=== PATIENT | female | born 1975 | race Caucasian/White ===

== ENCOUNTER 2020-05-09 12:38 | Outpatient (REF) | payer OTHER, MEDICAID, SELFPAY ==
--- NOTE | ~2020-05-09 | MM_ITS ---
EXAMINATION: MM SCREENING DIGITAL BREAST TOMOSYNTHESIS, BILATERAL CLINICAL INFORMATION: Screening. Asymptomatic. The lifetime risk of breast cancer based on the Tyrer-Cuzick Model is 11%. COMPARISON: Mammography: 02/10/2018, 03/04/2015, 02/12/2015 TECHNIQUE: Digital breast tomosynthesis is performed in both the craniocaudal and mediolateral oblique views along with computer-aided detection (CAD). Synthesized 2D images are generated from the tomosynthesis. Additional bilateral CC views are provided. FINDINGS: There are scattered areas of fibroglandular density (ACR BI-RADS breast composition Category b). There are no significant masses, abnormal calcifications, or other abnormalities. Parenchymal pattern is similar to prior studies. Skin contours are smooth. MM/MM tomosynthesis screening BI IMPRESSION: No mammographic evidence of malignancy. ASSESSMENT: BI-RADS 1: Negative RECOMMENDATION: Routine annual mammography screening. This patient's information was entered into a reminder system with a target due date for their next mammogram.
== END 2020-05-09 12:39 | disposition home or self-care (01) ==
LOC: HO.MAMMO 12:38
PROVIDERS: PCP Family Medicine; Visit Provider Family Medicine
DX: Z12.31 Encounter for screening mammogram for malignant neoplasm of breast (principal)
CPT/HCPCS: 77063; 77067

== ENCOUNTER 2020-06-17 12:23 | Outpatient (REF) | payer OTHER, MEDICAID, SELFPAY ==
[2020-06-17 15:11] LABS: MANUAL DIFF FLAG NO
[2020-06-17 15:26] LABS: Basophils Absolute Auto 0.1 X10*3/uL (0.0-0.2); Basophils Percent Auto 1.1 % (0-2); Eosinophils Absolute Auto 0.2 X10*3/uL (0.0-0.4); Eosinophils Percent Auto 2.4 % (0-4); Hematocrit 41.2 % (37-47); Hemoglobin 12.8 g/dl (12.0-16.0); Imm Gran Abs Auto 0.03 X10*3/uL (0.00-0.03); Imm Gran Pct Auto 0.3 % (0.0-0.4); Lymphocytes Absolute Auto 3.4 X10*3/uL (1.2-4.9); Lymphocytes Percent Auto 37.9 % (20-40); Mean Corpuscular HGB Conc 31.1 g/dl (31.0-35.0); Mean Corpuscular Hemoglobin 26.9 pg (27.0-33.0); Mean Corpuscular Volume 86.7 fL (80-98); Mean Platelet Volume 9.5 fL (9.4-12.3); Monocytes Absolute Auto 0.8 X10*3/uL (0.1-1.2); Monocytes Percent Auto 8.7 % (2-11); Neutrophils Absolute Auto 4.5 X10*3/uL (2.0-8.3); Neutrophils Percent Auto 49.6 % (45-73); Platelet Count 365 X10*3/uL (160-400); Red Blood Count 4.75 X10*6/uL (4.20-5.50); Red Cell Distribution Width 15.2 % (11.0-16.0)
[2020-06-17 15:36] LABS: Alanine Aminotransferase 9 U/L (0-31); Albumin Level 4.1 g/dL (3.5-5.0); Alkaline Phosphatase 95 U/L (39-117); Anion Gap 15 (12-20); Aspartate Amino Transferase 15 U/L (5-31); Bilirubin Total 0.4 mg/dL (0.0-1.0); Blood Urea Nitrogen 6 mg/dL (9-16); Calcium 8.8 mg/dL (8.4-10.2); Carbon Dioxide 26 mmol/L (22-29); Chloride 103 mmol/L (96-108); Estimated Glomerular Filt Rate > 60; Glucose Random 96 mg/dL (60-115); Potassium 4.5 mmol/L (3.3-5.1); Sodium 139 mmol/L (135-145); Total Protein 7.8 g/dL (6.5-8.0)
[2020-06-17 16:05] LABS: Thyroid Stimulating Hormone 1.65 uIU/mL (0.32-4.0)
== END 2020-06-17 12:24 | disposition home or self-care (01) ==
LOC: HO.LAB 12:23
PROVIDERS: PCP Family Medicine; Visit Provider Physician Assistant
DX: K21.9 Gastro-esophageal reflux disease without esophagitis (principal); K59.09 Other constipation; R10.11 Right upper quadrant pain; R74.01 Elevation of levels of liver transaminase levels; Z79.899 Other long term (current) drug therapy
CPT/HCPCS: 36415; 80053; 84443; 85025

== ENCOUNTER 2020-06-26 15:01 | Outpatient (REF) | payer OTHER, MEDICAID, SELFPAY ==
[2020-06-26 15:20] LABS: MANUAL DIFF FLAG NO
[2020-06-26 15:23] LABS: Basophils Absolute Auto 0.1 X10*3/uL (0.0-0.2); Basophils Percent Auto 0.6 % (0-2); Eosinophils Absolute Auto 0.2 X10*3/uL (0.0-0.4); Eosinophils Percent Auto 1.9 % (0-4); Hematocrit 40.2 % (37-47); Hemoglobin 12.5 g/dl (12.0-16.0); Imm Gran Abs Auto 0.04 X10*3/uL (0.00-0.03); Imm Gran Pct Auto 0.3 % (0.0-0.4); Lymphocytes Absolute Auto 4.3 X10*3/uL (1.2-4.9); Lymphocytes Percent Auto 34.9 % (20-40); Mean Corpuscular HGB Conc 31.1 g/dl (31.0-35.0); Mean Corpuscular Hemoglobin 26.9 pg (27.0-33.0); Mean Corpuscular Volume 86.6 fL (80-98); Mean Platelet Volume 8.8 fL (9.4-12.3); Monocytes Absolute Auto 0.8 X10*3/uL (0.1-1.2); Monocytes Percent Auto 6.6 % (2-11); Neutrophils Absolute Auto 6.8 X10*3/uL (2.0-8.3); Neutrophils Percent Auto 55.7 % (45-73); Platelet Count 353 X10*3/uL (160-400); Red Blood Count 4.64 X10*6/uL (4.20-5.50); Red Cell Distribution Width 15.1 % (11.0-16.0); White Blood Count 12.2 X10*3/uL (4.8-10.8)
[2020-06-26 15:46] LABS: Alanine Aminotransferase 15 U/L (0-31); Albumin Level 4.1 g/dL (3.5-5.0); Alkaline Phosphatase 91 U/L (39-117); Anion Gap 11 (12-20); Aspartate Amino Transferase 17 U/L (5-31); Bilirubin Total 0.2 mg/dL (0.0-1.0); Blood Urea Nitrogen 8 mg/dL (9-16); Calcium 8.4 mg/dL (8.4-10.2); Carbon Dioxide 27 mmol/L (22-29); Chloride 102 mmol/L (96-108); Estimated Glomerular Filt Rate > 60; Glucose Random 82 mg/dL (60-115); Iron 39 mcg/dL (30-160); Percent Iron Saturation 9 % (15-50); Potassium 3.6 mmol/L (3.3-5.1); Sodium 136 mmol/L (135-145); Total Iron Binding Capacity 428 mcg/dL (228-428); Total Protein 7.8 g/dL (6.5-8.0); Unsaturated Iron Binding 389 ug/dL
[2020-06-26 16:10] LABS: Thyroid Stimulating Hormone 0.98 uIU/mL (0.32-4.0)
[2020-06-26 16:12] LABS: Vitamin B12 480 pg/mL (200-900)
[2020-06-26 16:40] LABS: Ferritin 12 ng/mL (10-250)
== END 2020-06-26 15:02 | disposition home or self-care (01) ==
LOC: HO.LAB 15:01
PROVIDERS: PCP Family Medicine; Visit Provider Family Medicine
DX: N93.9 Abnormal uterine and vaginal bleeding, unspecified (principal)
CPT/HCPCS: 36415; 80053; 82607; 82728; 83540; 84443; 85025

== ENCOUNTER 2020-07-02 09:09 | Outpatient (REF) | payer OTHER, MEDICAID, SELFPAY ==
[2020-07-02 14:49] LABS: CT PCR NOT DETECTED (Not Detect.); NG PCR NOT DETECTED (Not Detect.)
[2020-07-05 01:07] LABS: HPV mRNA E6/E7 rflx Not Detected (Not Detected)
== END 2020-07-02 09:10 | disposition home or self-care (01) ==
LOC: HO.LAB 09:09
PROVIDERS: PCP Family Medicine; Visit Provider Obstetrics & Gynecology
DX: Z12.4 Encounter for screening for malignant neoplasm of cervix (principal); Z11.51 Encounter for screening for human papillomavirus (HPV); Z11.3 Encounter for screening for infections with a predominantly sexual mode of transmission; N92.1 Excessive and frequent menstruation with irregular cycle
CPT/HCPCS: 87491; 87591; 87624; 88142

== ENCOUNTER 2020-07-02 10:41 | Outpatient (REF) | payer OTHER, MEDICAID, SELFPAY | END 2020-07-02 10:42 | disposition home or self-care (01) | LOC: HO.LNP 10:41 | PROVIDERS: Visit Provider Physician Assistant | DX: A04.8 Other specified bacterial intestinal infections (principal); R10.9 Unspecified abdominal pain | CPT/HCPCS: 87338 ==

== ENCOUNTER 2020-07-03 07:56 | Outpatient (REF) | payer OTHER, MEDICAID, SELFPAY ==
--- NOTE | ~2020-07-03 | US_ITS ---
EXAMINATION: US COMPLETE ABDOMEN WITH LIVER ELASTOGRAPHY CLINICAL INFORMATION: Abdominal pain. COMPARISON: CT 06/09/2014. TECHNIQUE: Real-time imaging of the abdominal viscera. Noninvasive ultrasound liver fibrosis assessment is performed using Haleigh ElastPQ point quantification shear wave elastography (pSWE) with a C5-2 MHz transducer. Multiple elastography samples are obtained. FINDINGS: PANCREAS: Normal. The visualized pancreatic head and body are normal in appearance. The remainder of the pancreas is obscured from visualization by the overlying bowel gas. ABDOMINAL AORTA: The proximal, middle, and distal aortic segments are normal in caliber. INFERIOR VENA CAVA: Visualized portions are normal. LIVER: The liver demonstrates normal size, contour and echogenicity. No focal lesion or intrahepatic biliary duct dilatation. The right lobe measures 15.2 cm in length. The left lobe measures 11.6 cm in length. Portal flow is hepatopedal. Shear wave liver elastography median stiffness is 1.33 m/s (reference: normal median stiffness is 1.3 m/s or less). IQR/median stiffness to assess sampling precision is 0.13 (reference: good quality data set is IQR/median stiffness of 0.15 or less). GALLBLADDER: Echogenic focus associated with the wall, with ringdown artifact, suggesting adenomyomatosis. No shadowing calculi. No wall thickening or pericholecystic fluid. No sonographic Pimentel's sign. COMMON BILE DUCT: Normal in caliber measuring 0.3 cm in diameter. RIGHT KIDNEY: Normal. No hydronephrosis. No renal calculi or focal parenchymal lesions. The kidney measures 11.1 cm in maximum dimension. LEFT KIDNEY: Normal. No hydronephrosis. No renal calculi or focal parenchymal lesions. The kidney measures 11.2 cm in maximum dimension. SPLEEN: Normal. The spleen measures 8.7 cm in maximum dimension. FREE FLUID: None. US/US abdomen comp w elastography IMPRESSION: 1. Echogenic focus associated with the gallbladder wall suggesting adenomyomatosis. 2. Liver echogenicity is within normal limits. Liver elastography: Median stiffness is 1.33 m/s. In the absence of other known clinical signs, rules out compensated advanced chronic liver disease. See guidelines below. REFERENCE: Society of Radiologists in Ultrasound Liver Stiffness Thresholds (2020): LIVER STIFFNESS THRESHOLDS: *Liver Stiffness equal or less than 1.3 m/s: High probability of being normal. *Liver Stiffness less than 1.7 m/s: In the absence of other known clinical signs, rules out compensated advanced chronic liver disease. *Liver Stiffness 1.7-2.1 m/s: Suggestive of compensated advanced chronic liver disease but need further test for confirmation. *Liver Stiffness over 2.1 m/s: Rules in compensated advanced chronic liver disease. *Liver Stiffness over 2.4 m/s: Suggestive of clinically significant portal hypertension. QUALITY OF DATA SET: *IQR/Median value equal or less than 0.15 implies a quality data set. *IQR/Median value over 0.15 implies a poor quality data set. SIGNIFICANT CHANGE FROM PRIOR EXAM: Significant change if liver stiffness measurement is 10% or greater from prior exam. OTHER CONSIDERATIONS: The stage of liver fibrosis may be overestimated in the setting of acute hepatitis, liver inflammation, elevated liver function tests, hepatic vascular congestion, obstructive cholestasis, non-fasting state, and infiltrative diseases such as amyloidosis and lymphoma. In some patients with NAFLD, the liver stiffness thresholds for compensated advanced chronic liver disease may be lower. In causes other than viral hepatitis and NAFLD, liver stiffness thresholds are not well established.
[2020-07-03 10:40] LABS: HCG Quantitative < 2 mIU/mL; Thyroid Stimulating Hormone 1.11 uIU/mL (0.32-4.0)
[2020-07-04 05:01] LABS: Follicle Stimulating Hormone 7.4 mIU/mL
== END 2020-07-03 07:57 | disposition home or self-care (01) ==
LOC: HO.US 07:56
PROVIDERS: Absent Provider Obstetrics & Gynecology; PCP Family Medicine; Visit Provider Nurse Practitioner
DX: R10.9 Unspecified abdominal pain (principal); N92.1 Excessive and frequent menstruation with irregular cycle
CPT/HCPCS: 36415; 76705; 76981; 83001; 83002; 84443; 84702

== ENCOUNTER 2020-07-08 13:00 | Outpatient (REF) | payer OTHER, MEDICAID, SELFPAY ==
--- NOTE | ~2020-07-08 | US_ITS ---
EXAMINATION: ULTRASOUND PELVIS. CLINICAL INFORMATION: Excessive and frequent menstruation with irregularity. COMPARISON: None TECHNIQUE: Transabdominal and transvaginal ultrasound pelvis is performed. FINDINGS: The uterus is anteverted measuring 11.0 cm in length, 4.8 cm in AP and 5.8 cm in transverse dimension. Endometrial thickness is 0.4 cm. The right ovary measures 3.2 x 1.7 x 1.6 cm and volume 4.6 mL. Previously it measured 1.6 x 2.9 x 2.0 cm. The left ovary measures 4.0 x 2.0 x 1.8 cm and volume 7.5 mL. Previously measured 1.6 x 3.0 x 2.0 cm. There are multiple cervical nabothian cysts seen. There is no free fluid in the cul-de-sac. US/US pelvic complete IMPRESSION: Anteverted uterus is unremarkable. Unremarkable ovaries. Multiple nabothian cyst visualized in cervix.
--- NOTE | ~2020-07-08 | US_ITS ---
EXAMINATION: ULTRASOUND PELVIS. CLINICAL INFORMATION: Excessive and frequent menstruation with irregularity. COMPARISON: None TECHNIQUE: Transabdominal and transvaginal ultrasound pelvis is performed. FINDINGS: The uterus is anteverted measuring 11.0 cm in length, 4.8 cm in AP and 5.8 cm in transverse dimension. Endometrial thickness is 0.4 cm. The right ovary measures 3.2 x 1.7 x 1.6 cm and volume 4.6 mL. Previously it measured 1.6 x 2.9 x 2.0 cm. The left ovary measures 4.0 x 2.0 x 1.8 cm and volume 7.5 mL. Previously measured 1.6 x 3.0 x 2.0 cm. There are multiple cervical nabothian cysts seen. There is no free fluid in the cul-de-sac. US/US transvaginal IMPRESSION: Anteverted uterus is unremarkable. Unremarkable ovaries. Multiple nabothian cyst visualized in cervix.
== END 2020-07-08 13:01 | disposition home or self-care (01) ==
LOC: HO.US 13:00
PROVIDERS: PCP Family Medicine; Visit Provider Obstetrics & Gynecology
DX: N92.1 Excessive and frequent menstruation with irregular cycle (principal)
CPT/HCPCS: 76830; 76856

== ENCOUNTER 2020-07-17 08:32 | Outpatient (REF) | payer OTHER, MEDICAID, SELFPAY | END 2020-07-17 08:33 | disposition home or self-care (01) | LOC: HO.LAB 08:32 | PROVIDERS: PCP Family Medicine; Visit Provider Obstetrics & Gynecology | DX: N92.1 Excessive and frequent menstruation with irregular cycle (principal) | CPT/HCPCS: 58100; 81025; 88305 ==

== ENCOUNTER → 2020-07-31 12:06 | Outpatient (BNVA) | payer OTHER, MEDICAID, SELFPAY | PROVIDERS: PCP Family Medicine; Visit Provider Obstetrics & Gynecology ==

== ENCOUNTER 2020-10-10 14:54 | Outpatient (REF) | payer OTHER, MEDICAID, SELFPAY ==
--- NOTE | ~2020-10-10 | XR_ITS ---
EXAMINATION: XR FOOT, LEFT CLINICAL INFORMATION: Pain in left foot. COMPARISON: None TECHNIQUE: AP, lateral, and oblique views of the left foot. 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 Minimal spurring is seen in the posterior calcaneus at the insertion of the Achilles tendon and plantar fascia. No fracture, malalignment or other acute abnormality. Joint spaces are maintained. No erosions. XR/XR foot LT min 3V IMPRESSION: Accessory navicular bone. Minimal calcaneal spurring. No acute abnormality.
== END 2020-10-10 14:55 | disposition home or self-care (01) ==
LOC: HO.XRAY 14:54
PROVIDERS: PCP Family Medicine; Referring Provider Family Medicine; Visit Provider Internal Medicine
DX: M79.672 Pain in left foot (principal)
CPT/HCPCS: 73630

== ENCOUNTER → 2020-10-30 11:15 | Outpatient (BNVA) | payer OTHER, MEDICAID, SELFPAY | PROVIDERS: PCP Family Medicine; Visit Provider Obstetrics & Gynecology ==

== ENCOUNTER → 2021-02-04 13:52 | Outpatient (REF) | payer OTHER, MEDICAID, SELFPAY ==
--- NOTE | 2021-02-04 13:57 | CA_ITS ---
Transthoracic Echocardiogram Patient (Last, First, Middle): Tameka Ramos, Gender: Female Date of : 1975 Age: 45 Procedure Date: 02/04/2021 Procedure Type: Transthoracic Echocardiogram Location: OP Height: 152.4 cm Weight: 102.06 kg BSA: 1.96 m2 Heart Rate: bpm BP: 120 / 68 mmHg Hasher Operator: LUDWIG Referring MD: Sofia Garcia MD Symptoms: LOCIALIZED EDEMA Study Quality: Fair ECG Rhythm: Sinus Conclusions: - The left ventricular systolic function is normal. The visually estimated ejection fraction is between 65-70%. - No obvious valvular pathology seen on this study. Findings Left Ventricle Normal left ventricular cavity size. There is normal left ventricular wall thickness. The left ventricular systolic function is normal. The visually estimated ejection fraction is between 65-70%. There is no evidence of regional wall motion abnormalities. Diastolic function is normal for age. Right Ventricle Normal right ventricular cavity size and systolic function. Atria Both atria are normal in size. Aortic Valve There is a normal trileaflet aortic valve. There is no aortic valve stenosis. There is no aortic valve regurgitation. Mitral Valve The mitral valve appears normal. There is trace mitral valve regurgitation. There is no mitral valve stenosis. Pulmonic Valve The pulmonic valve was not well visualized. Tricuspid Valve There is trace tricuspid valve regurgitation. The pulmonary artery systolic pressure is normal. Great Vessels The aortic annulus, sinuses of valsalva, and asc aorta are normal in size. Venous The inferior vena cava is normal in size and collapses greater than 50% with inspiration. Pericardium/Pleural There is no evidence of pericardial effusion. Prior Study Comparison No prior study available for comparison. Recommendations, Care & Conclusions No obvious valvular pathology seen on this study. Measurements 2D Linear Measurements IVSd: 0.97 0.6-0.9/0.6-1.0 cm LVIDd: 4.38 3.9-5.3/4.2-5.9 cm LVIDd Index: 2.23 2.4-3.2/2.2-3.1 cm/m2 LVIDs: 3.03 2.0-3.6 cm LVPWd: 1.06 0.7-1.1 cm Ao Root: 2.30 2.1-3.5 cm LA Diam: 3.20 2.7-3.8/3.0-4.0 cm LAIDs Index: 1.63 1.5-2.3 cm/m2 LV Mass: 187.03 67-162/88-224 g LV Mass Index: 95.43 43-95/49-115 g/m2 LVOT Diam: 1.90 3.0+(-)1.3 cm Mitral Valve MV Pk E: 1.07 MV PK A: 0.47 MV Decel Time: 195.00 E/A: 2.30 E'Lateral: 12.50 E'Medial: 11.20 E/E' Med: 9.60 E/E' Lat: 8.60 PHT: 57.00 MVA PHT: 3.86 Decel Frontier: 5.47 Aortic Valve AoV Pk Gerber: 1.49 AoV Pk Grad: 9.00 LVOT LVOT Pk Gerber: 1.18 LVOT Mn Gerber: 0.72 LVOT VTI: 0.25 LVOT Pk Grad: 6.00 LVOT Mn Grad: 2.00 LVOT Diam: 1.90 LVOT Area: 2.84 Diastolic Function MV Pk E: 1.07 MV Pk A: 0.47 E/A: 2.30 E'Medial: 11.20 E/E' Med: 9.60 E' Laterial: 12.50 E/E' Lat: 8.60 Right Ventricle TAPSE (mm): 2.38 Tricuspid Valve TR Pk Gerber: 2.33 TR Pk Grad: 22.00 RA Press: 3.00 RVSP: 25.00 Great Vessels Aorta Ao Root-2D: 2.30 2.0-3.7 cm Ao Asc: 2.80 2.1-3.4 cm Updated in Other Vendor System with Status of Final Maged Kumar MD electronically signed on 02/06/2021 11:47:19 AM with status of Final
== END ==
LOC: HO.CARD 13:52
PROVIDERS: Visit Provider Family Medicine
DX: R60.0 Localized edema (principal)
CPT/HCPCS: 93306

== ENCOUNTER → 2021-06-03 15:08 | Outpatient (BNVA) | payer OTHER, MEDICAID, SELFPAY | PROVIDERS: PCP Family Medicine; Referring Provider Family Medicine; Visit Provider Physician Assistant ==

== ENCOUNTER 2023-11-24 10:46 | Outpatient (REF) | payer MEDICARE, MEDICAID, SELFPAY ==
[2023-11-24 13:16] LABS: MANUAL DIFF FLAG NO
[2023-11-24 13:21] LABS: Basophils Absolute Auto 0.1 X10*3/uL (0.0-0.2); Basophils Percent Auto 0.7 % (0-2); Eosinophils Absolute Auto 0.2 X10*3/uL (0.0-0.4); Hematocrit 40.9 % (37.0-47.0); Hemoglobin 12.8 g/dl (12.0-16.0); Imm Gran Abs Auto 0.03 X10*3/uL (0.00-0.03); Imm Gran Pct Auto 0.3 % (0.0-0.4); Lymphocytes Absolute Auto 2.3 X10*3/uL (1.2-4.9); Lymphocytes Percent Auto 22.7 % (20-40); Mean Corpuscular HGB Conc 31.3 g/dl (31.0-35.0); Mean Corpuscular Hemoglobin 28.1 pg (27.0-33.0); Mean Corpuscular Volume 89.7 fL (80.0-98.0); Monocytes Absolute Auto 0.5 X10*3/uL (0.1-1.2); Monocytes Percent Auto 5.3 % (2-11); Platelet Count 343 X10*3/uL (160-400); Red Blood Count 4.56 X10*6/uL (4.20-5.50); Red Cell Distribution Width 14.6 % (11.0-16.0); White Blood Count 10.1 X10*3/uL (4.8-10.8)
[2023-11-24 13:56] LABS: Alanine Aminotransferase 13 U/L (0-31); Albumin Level 3.7 g/dL (3.5-5.0); Alkaline Phosphatase 83 U/L (39-117); Anion Gap 10 (12-20); Aspartate Amino Transferase 14 U/L (5-31); Bilirubin Direct < 0.2 mg/dL (0.0-0.5); Bilirubin Total 0.2 mg/dL (0.0-1.0); Blood Urea Nitrogen 9 mg/dL (9-16); Calcium 8.9 mg/dL (8.4-10.2); Carbon Dioxide 24 mmol/L (22-29); Chloride 108 mmol/L (96-108); Cholesterol 186 mg/dL (<200); Estimated Glomerular Filt Rate > 60; Ferritin 21 ng/mL (10-250); Glucose Random 86 mg/dL (60-115); HDL Cholesterol 45 mg/dL (>40); Iron 33 mcg/dL (30-160); LDL Cholesterol Calculated 123 mg/dL (<100); Magnesium 2.1 mg/dL (1.6-2.6); Percent Iron Saturation 11 % (15-50); Sodium 138 mmol/L (135-145); TSH reflex Free T4 0.91 uIU/mL (0.32-4.0); Total Iron Binding Capacity 306 mcg/dL (228-428); Total Protein 7.5 g/dL (6.5-8.0); Triglycerides 94 mg/dL (<150); Unsaturated Iron Binding 273 ug/dL; Vitamin D 25-OH Total 27.7 ng/mL (>30)
[2023-11-24 14:05] LABS: Estimated Average Glucose 120 mg/dL; Hemoglobin A1c % 5.8 % (<6.0)
[2023-11-25 09:51] LABS: HIV AB/AG Nonreactive (Nonreactive); HIV Num 1 0.04 S/CO (0.00-0.99); ~HepC Num1 0.24 S/CO (0.00-0.79); ~Hepatitis C Antibody Nonreactive (Nonreactive)
[2023-11-25 09:53] LABS: Syphilis Screen Nonreactive (Nonreactive)
== END 2023-11-24 10:47 | disposition home or self-care (01) ==
LOC: HO.HHCL 10:46
PROVIDERS: Visit Provider Family Medicine
DX: E66.09 Other obesity due to excess calories (principal); M79.7 Fibromyalgia; E61.1 Iron deficiency; Z11.3 Encounter for screening for infections with a predominantly sexual mode of transmission; Z13.1 Encounter for screening for diabetes mellitus
CPT/HCPCS: 36415; 80048; 80061; 80076; 82306; 82728; 83036; 83540; 83735; 84443; 85025; 86780; 86803; 87389

== ENCOUNTER 2023-12-21 15:17 | Outpatient (REF) | payer MEDICARE, MEDICAID, SELFPAY ==
--- NOTE | ~2023-12-21 | MM_ITS ---
EXAMINATION: MM SCREENING DIGITAL BREAST TOMOSYNTHESIS, BILATERAL CLINICAL INFORMATION: Screening. Asymptomatic. COMPARISON: Mammography: Comparison is made with available priors TECHNIQUE: Digital breast mammography with tomosynthesis is performed in both the craniocaudal and mediolateral oblique views along with computer-aided detection (CAD). FINDINGS: There are scattered areas of fibroglandular density (ACR BI-RADS breast composition Category b). There are no significant masses, abnormal calcifications, or other abnormalities. MM/MM tomosynthesis screening BI IMPRESSION: No mammographic evidence of malignancy. ASSESSMENT: BI-RADS BI-RADS 1 - Negative RECOMMENDATION: Routine annual mammography screening. 1 year F/U This examination should not preclude the clinical evaluation of a suspicious palpable abnormality. This patient's information was entered into a reminder system with a target due date for their next mammogram. Electronically signed by: Jade Gillis DO 01/11/2024 11:46 AM EDT
== END 2023-12-21 15:18 | disposition home or self-care (01) ==
LOC: HO.MAMMO 15:17
PROVIDERS: PCP Family Medicine; Visit Provider Family Medicine
DX: Z12.31 Encounter for screening mammogram for malignant neoplasm of breast (principal)
CPT/HCPCS: 77063; 77067

== ENCOUNTER → 2023-12-21 15:30 | Outpatient (BNV) | payer MEDICARE, MEDICAID, SELFPAY | PROVIDERS: PCP Family Medicine; Visit Provider Internal Medicine | DX: Z12.31 Encounter for screening mammogram for malignant neoplasm of breast (principal) | CPT/HCPCS: 77063; 77067 ==

== ENCOUNTER 2024-03-07 11:19 | Outpatient (REF) | payer MEDICARE, MEDICAID, SELFPAY ==
[2024-03-08 02:39] LABS: CT PCR NOT DETECTED (Not Detect.); NG PCR NOT DETECTED (Not Detect.)
[2024-03-08 09:18] LABS: Bacterial Vaginosis PCR POSITIVE (Negative); Candida Group PCR NOT DETECTED (Not Detect); Candida glab krusei PCR NOT DETECTED (Not Detect); Trichomonas vaginalis PCR NOT DETECTED (Not Detect)
== END 2024-03-07 11:20 | disposition home or self-care (01) ==
LOC: HO.HHCLNP 11:19
PROVIDERS: Visit Provider Internal Medicine
DX: N89.8 Other specified noninflammatory disorders of vagina (principal)
CPT/HCPCS: 0352U; 87491; 87591

== ENCOUNTER → 2024-07-17 15:48 | Outpatient (BNVA) | payer MEDICARE, MEDICAID, SELFPAY | PROVIDERS: PCP Family Medicine; Visit Provider Nurse Practitioner Family | DX: Z01.818 Encounter for other preprocedural examination (principal); K59.09 Other constipation; K21.9 Gastro-esophageal reflux disease without esophagitis | CPT/HCPCS: 99212 ==

== ENCOUNTER 2025-02-19 07:45 | Day surgery (SDC) | payer BC, MEDICAID, SELFPAY ==
--- OUTSIDE RECORDS SUMMARY | 2025-01-22 07:39 | XMS_ITS | Encounter Summary ---
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 Name Role Phone Sofia Garcia MD Primary Care Provider [phone]- [phone] Nhi Monroe Unavailable Encounter Details Date Type Department Care Team (Latest Contact Info) Description 11/28/2019 Abstract [facility] CONVERSIONS Dental, Provider, DDS Social History Tobacco Use Types Packs/Day Years Used Date Smoking Tobacco: Never Assessed Comments Unknown Sex and Gender Information Value Date Recorded Sex Assigned at Female 01/25/2022 10:14 AM EDT Legal Sex Female 10:14 AM EDT Gender Identity Female 01/25/2022 10:14 AM EDT Sexual Orientation Straight 01/25/2022 10 :14 AM EDT documented as of this encounter Plan of Treatment Upcoming Encounters Date Type Department Care Team (Late st Contact Info) Description 02/28/2025 3:00 PM EST Office Visit [facility] OPTOMETRY [address] [place] [address] Hilda Orta, OD [address] [place] [address] documented as of this encounter Visit Diagnoses Not on filedocumented in this encounter Care Teams 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
--- OUTSIDE RECORDS SUMMARY | 2025-01-22 07:39 | XMS_ITS | Encounter Summary ---
Author Organization [employer] Address [address] [facility] [address] [place] [address] Care Team Providers [employer] Executive Cloud Sales Name Role Phone Sofia Garcia MD Primary Care Provider +1- [phone] Nhi Monroe Unavailable Encounter Details Date Type Department Care Team ([facility] Contact Info) Description 07/21/2022 Abstract [facility] MEDICINE [address] [place] [address] Sofia Garcia MD [address] [place] [address] Social History Tobacco Use Types Packs/Day Years Used Date Smoking Tobacco: Never Smokeless Tobacco: Never Depression Answer Date Recorded Patient Health Questionnaire-2 Score 2 04/01/2022 Comments Unknown Sex and Gender Information Value Date Recorded Sex Assigned at Female 01/25/2022 10:14 AM EDT Legal Sex Female 10:14 AM EDT Gender Identity Female 01/25/2022 10:14 AM EDT Sexual Orientation Straight 01/25/2022 10 :14 AM EDT COVID-19 Exposure Response Date Recorded In the last 10 days, have yo u been in contact with someone who was confirmed or suspected to have Coronavirus/COVID-19? No / Unsure 07/20/2022 2:43 PM EDT documented as of this encounter Plan of Treatment Upcoming Encounters Date Type Department Care Team (Late Contact Info) Description 02/28/2025 3:00 PM EST Office Visit [facility] OPTOMETRY [address] [place], [place] [id number] Hilda Orta, OD [address] [place] [address] documented as of this encounter Visit Diagnoses Not on filedocumented in this encounter Care Teams [employer] Sales Relationship Specialty Start Date End Date Sofia Garcia MD [address] [place] [address] [place] [address] PCP - General Family Medicine 03/28/18 Nhi Monroe [address] [place] [address] 3[address] [place] [address] Gastroenterology 07/19/24 documented as of this encounter
--- OUTSIDE RECORDS SUMMARY | 2025-01-22 07:39 | XMS_ITS | Clinical Summary ---
Author Organization [employer] Address [address] [place] [address] 7[address] [place] [address] Care Team Providers Care Nursing Unit Clerk Name Role Phone Sofia Garcia MD Primary Care Provider [phone] Nhi Monroe Unavailable Allergies No known active allergies Medications * This document contains information received from the source organization and may not represent a complete record from that organization. cholecalciferol (Vitamin D-3) 25 MCG (1000 UT) tabletIndication s:Vitamin D Deficiency Take 1 tablet (25 mcg) by mouth Once per day. 90 tablet 3 02/20/20 24 025 Active omeprazole (PriLOSEC) [address] capsuleIndicatio ns:Gastric reflux Take 1 capsule (20 mg) by mouth 2 times daily. 180 capsule 1 02/20/20 24 Active metroNIDAZOLE (Metrogel) 0.75 % vaginal gelIndications:B acterial Vaginosis Insert one applicator into vagina at bedtime for 7 nights 45 g 04/25/19 25 Active clindamycin (Clindagel) 1 % gelIndications:H ydradenitis Apply topically Once per day. 60 g 2 04/25/19 25 026 Active Senna-Time 8.6 MG tabletIndication s:Constipation, unspecified constipation type Take 1-2 tabs [p at bedtime prn constipation 180 tablet 3 08/23/19 25 Active Blood Pressure kitIndications:E levated blood pressure reading Check blood pressure twice a week or prn 1 kit 08/23/19 25 Active Zepbound 7.5 MG/0.5ML solution auto-injectorInd ications:Class 3 severe obesity due to excess calories without serious comorbidity with body mass index (BMI) of 40.0 to 44.9 in adult (HCC) INJECT ONE PEN (=7.5MG) SUBCUTANEOUSLY ONCE A WEEK DIRECTED 2 mL 3 10/26/19 Active Active Problems Problem Noted Date Diagnosed Date Elevated blood pressure reading 08/22/2024 Overview (08/22/2024): BP machine Rx 08/22/24 to monitor Lifestyle modification discussed Assessment & Plan (08/22/2024 11:01 AM EDT): BP machine Rx 08/22/24 to monitor Lifestyle modification discussed BV (bacterial vaginosis) 04/25/2024 Overview (04/25/2024): -prescribed metroNIDAZOLE (Metrogel) 0.75 % vaginal gel 04/25/24 and instructed to use if discharge and itching continues after menstrual cycle ends. Assessment & Plan (04/25/2024 4:03 PM EST): -prescribed metroNIDAZOLE (Metrogel) 0.75 % vaginal gel 04/25/24 and instructed to use if discharge and itching continues after menstrual cycle ends. Vaginal discharge 03/06/2024 Assessment & Plan (03/06/2024 6:07 PM EST): No evidence of tampon or any foreign body in Vaginal exam, no abn findings. Fu vaginal swab due to hx vaginal discharge. I told her we'll call her with results. Motion sickness 02/20/2024 Overview (02/20/2024): - Prescribed meclizine (Antivert) 25 MG tablet for cruise to aid with motion sickness 02/20/24 Assessment & Plan (02/20/2024 12:35 PM EST): - Prescribed meclizine (Antivert) 25 MG tablet for cruise to aid with motion sickness 02/20/24 Vitamin D deficiency 11/30/2023 Overview (02/20/2024): Lab Results Component Value Date [id number] 27.7 (L) 11/24/2023 -daily vit d started 11/30/23 - Had no received Vitamin D tablets from previous visit. Prescribing cholecalciferol (Vitamin D-3) 25 MCG (1000 UT) tablet 02/20/24 Assessment & Plan (02/20/2024 12:33 PM EST): Lab Results Component Value Date [id number] 27.7 (L) 11/24/2023 -daily vit d started 11/30/23 - Had no received Vitamin D tablets from previous visit. Prescribing cholecalciferol (Vitamin D-3) 25 MCG (1000 UT) tablet 02/20/24 Tobacco dependence 11/24/2023 Overview (11/24/2023): -smoking approx. 8 cigarettes a day as well as vaping and smoking marijuana. -encouraged cessation. Assessment & Plan (11/24/2023 10:05 AM EDT): -smoking approx. 8 cigarettes a day as well as vaping and smoking marijuana. -encouraged cessation. Colon cancer screening 05/04/2023 Overview (07/19/2024): -not able to get to GI apt, had ageed to Cologuard, continue to encourage -pt agreed to Cologuard 11/23/23 -thinks she missed her appt with GI, given phone number to call 04/25/24 -intake with Dr. Monroe 07/19/24 for colonoscopy intake Assessment & Plan (04/25/2024 4:01 PM EST): -not able to get to GI apt, had ageed to Cologuard, continue to encourage -pt agreed to Cologuard 11/23/23 -thinks she missed her appt with GI, given phone number to call 04/25/24 Assessment & Plan (11/24/2023 9:54 AM EDT): -not able to get to GI apt, had ageed to Cologuard, continue to encourage -pt agreed to Cologuard 11/23/23 Other specified health status 08/06/2022 Overview (08/22/2024): -next comprehensive annual evaluation due after 11/22/24 -eye care facilitated by [facility] -dental recommended. -grisel care proxy given and filed 11/23/23 Assessment & Plan (11/24/2023 9:49 AM EDT): -Next Physical due after 11/22/24 -eye care facilitated by [facility] -dental recommended. -grisel care proxy given and filed 11/23/23 Fibromyalgia 04/01/2022 Overview (07/22/2022): Pt did not respond to gabapentin in the past. Trial of Lyrica 150 bid, PA requested 06/10/2021. She did not tolerate the side effects. Pt has chronic pain syndrome. Multiple work up are normal. I explained different treatment strategies for fibromyalgia. There is moderate evidence for efficacy for aerobic exercise, cognitive behavioral therapy, patient education, and group therapy. There is also evidence for acupuncture, hypnotherapy, biofeedback and balneotherapy. There is some weaker evidence for chiropractic therapy, massage, electrotherapy and ultrasound. There is no evidence that trigger point injections or opioids are beneficial in fibromyalgia. Pharmacologic options include muscle relaxants, gabapentin, pregabalin, and duloxetine, but are the lest effective of all strategies. Pt was counseled on the importance of exercise, adequate sleep, control of depression and or anxiety and stress management. Allergic rhinitis 05/25/2021 Constipation 05/25/2021 Overview (02/20/2024): - Controlled with senna. Dietary advise discussed. Assessment & Plan (02/20/2024 12:41 PM EST): - Controlled with senna. Dietary advise discussed. Endometrial hyperplasia 05/25/2021 Gastric reflux 05/25/2021 Overview (02/20/2024): Followed by GI -Continue omeprazole BID -H. pylori stool antigen negative 06/2020 - Prescribe omeprazole (PriLOSEC) [address] capsule 02/20/24 Assessment & Plan (02/20/2024 12:42 PM EST): Followed by GI -Continue omeprazole BID -H. pylori stool antigen negative 06/2020 - Prescribe omeprazole (PriLOSEC) [address] capsule 02/20/24 Assessment & Plan (11/24/2023 9:55 AM EDT): Followed by GI -Continue omeprazole BID -H. pylori stool antigen negative 06/2020 Hidradenitis suppurativa 05/25/2021 Overview (11/22/2023): - Use Clindamycin gel BID religiously Assessment & Plan (04/25/2024 4:04 PM EST): - Use Clindamycin gel BID religiously Assessment & Plan (11/24/2023 9:55 AM EDT): - Use Clindamycin gel BID religiously Mild intermittent asthma 05/25/2021 Overview (11/22/2023): -well controlled on albuterol prn Assessment & Plan (04/25/2024 3:47 PM EST): -well controlled on albuterol prn Assessment & Plan (11/24/2023 9:56 AM EDT): -well controlled on albuterol prn Mixed bipolar affective disorder, moderate ([facility]/ [facility]) 01/06/2017 Overview (04/25/2024): Not currently on any medication. Previously been on Valproic Acid 250 mg. -Continues to declined therapist or restarting medication. Assessment & Plan (04/25/2024 3:58 PM EST): Not currently on any medication. Previously been on Valproic Acid 250 mg. -Continues to declined therapist or restarting medication. Assessment & Plan (11/24/2023 9:55 AM EDT): -Valproic Acid 250mg started 08/26/21. She is taking once a day -Continue valproic acid to 250mg BID 09/17/2021. -Continues to declined therapist Assessment & Plan (04/01/2022 3:04 PM EST): Severe, not controlled. Symptoms have interfered with her ability to stay engaged in care. I have been writing mood stabilizer with initial improvment in symptoms and now severe depression. Denies plan for MARGIE. Seeing therapist. Agrees to med evaluation. Knee pain 08/31/2012 Polysubstance abuse 08/31/2012 Overview (02/20/2024): Pt not able to cut down at this time. motivational interviewing done. -3 bags a day. -continue with elementary instructional coach -offered cocaine recovery group and therapist. Pt declined. Obesity 03/08/2012 Overview (08/22/2024): Baseline weight: 02/2024 244 labs -Contraindication to phentermine: history of drug abuse Here today for follow-up/weight check. Tolerating zepbound (tirzepatide) well, denies side effects. BMI Readings from Last 3 Encounters: 08/22/24 39.47 kg/m 04/25/24 45.35 kg/m 03/06/24 47.65 kg/m Wt Readings from Last 3 Encounters: 08/22/24 195 lb 6.4 oz (88.6 kg) 04/25/24 232 lb 3.2 oz (105 kg) 03/06/24 244 lb (111 kg) (Lost 49 lbs since starting 03/06/24) Has had improvement in secondary outcomes with weight loss medication use. Understands that weight loss medications must be used as part of a comprehensive lifestyle plan that incorporates daily exercise, adequate protein intake, decreased soda and sugary beverage consumption, decreased caloric intake. -Zepbound (tirzepatide) started 03/06/24 -Increased Zepbound to 7.5 mg 06/26/24 Assessment & Plan (08/22/2024 10:47 AM EDT): Baseline weight: 02/2024 244 labs -Contraindication to phentermine: history of drug abuse Here today for follow-up/weight check. Tolerating zepbound (tirzepatide) well, denies side effects. BMI Readings from Last 3 Encounters: 08/22/24 39.47 kg/m 04/25/24 45.35 kg/m 03/06/24 47.65 kg/m Wt Readings from Last 3 Encounters: 08/22/24 195 lb 6.4 oz (88.6 kg) 04/25/24 232 lb 3.2 oz (105 kg) 03/06/24 244 lb (111 kg) (Lost 49 lbs since starting 03/06/24) Has had improvement in secondary outcomes with weight loss medication use. Understands that weight loss medications must be used as part of a comprehensive lifestyle plan that incorporates daily exercise, adequate protein intake, decreased soda and sugary beverage consumption, decreased caloric intake. -Zepbound (tirzepatide) started 03/06/24 -Increased Zepbound to 7.5 mg 06/26/24 Assessment & Plan (04/25/2024 3:49 PM EST): Baseline weight: 02/24/24 240 labs -given BMI >30kg/m2 (46.75) pt is a candidate for glucagon-like peptide-1s (GLP- 1) to assist with weight loss -she has tried dietary changes and physical activity for > 3 months without significant weight loss -risks and benefits discussed -patient counseled this medication is to be used in combination with reduced calorie diet and increased physical activity -Contraindication to phentermine: history of drug abuse -Zepbound (tirzepatide) Start 2.5mg subcutaneously q week x 1 month, then 5mg subcutaneously q week. May increased by 2.5mg q 4 weeks with max 15mg/wk -Increased Zepbound to 7.5 mg as per confirmed with pharmacy she last picked up 5 mg. 04/25/24 Assessment & Plan (02/21/2024 2:57 PM EST): Baseline weight: 02/24/24 240 labs -given BMI >30kg/m2 (46.75) pt is a candidate for glucagon-like peptide-1s (GLP- 1) to assist with weight loss -she has tried dietary changes and physical activity for > 3 months without significant weight loss -risks and benefits discussed -patient counseled this medication is to be used in combination with reduced calorie diet and increased physical activity -Contraindication to phentermine: history of drug abuse -Zepbound (tirzepatide) Start 2.5mg subcutaneously q week x 1 month, then 5mg subcutaneously q week. May increased by 2.5mg q 4 weeks with max 15mg/wk Assessment & Plan (11/24/2023 9:59 AM EDT): -start on Wegovy, discussed side effects. Obstructive sleep apnea syndrome 03/08/2012 Overview (11/22/2023): - Sleep study from 03/2012 showed mild STEFANIE. - Pt did not want CPAP titration done because it was positional Assessment & Plan (11/24/2023 9:56 AM EDT): - Sleep study from 03/2012 showed mild STEFANIE. - Pt did not want CPAP titration done because it was positional Assessment & Plan (04/01/2022 12:17 PM EST): - Sleep study from 03/2012 showed mild STEFANIE. - Pt did not want CPAP titration done because it was positional Depressive disorder 11/25/2011 Overview (11/22/2023): -declines behavior health referral -denies suicidial or homacidial ideation Assessment & Plan (11/24/2023 9:54 AM EDT): -declines behavior health referral -denies suicidial or homacidial ideation Resolved Problems Problem Noted Date Diagnosed Date Resolved Date Dietary counseling 04/25/2024 Assessment & Plan (04/25/2024 3:48 PM EST): Dietary Recommendations: Fruits, vegetables, whole grains, protein foods, and fat-free or low-fat dairy products are healthy choices. Eat different types of protein foods in your diet. This can include seafood, lean meats, poultry, beans, peas, lentils, nuts, seeds, soy products, and eggs. Limit foods and beverages higher in added sugars, saturated fat, and sodium. Exercise counseling 04/25/2024 08/23/19 Assessment & Plan (04/25/2024 3:48 PM EST): Exercise Recommendations: At least 150 minutes of moderate-intensity physical activity per week, or an equivalent combination of moderate- and vigorous-intensity activity Encounters Date Type Department Care Team Description 12/24/2024 Telephone [facility] [address] [place] [address] Sofia Garcia MD February Recalls 10/23/2024 Refill [facility] [address] [place] [address] Sofia Garcia MD Class 3 severe obesity due to excess calories without serious comorbidity with body mass index (BMI) of 40.0 to 44.9 in adult from Last 3 Months Immunizations Immunization Administration Dates Next Due Hep A, Adult 02/20/2024 Hep B, adult 08/22/2024,02/20/2024,11/24/2023 Influenza, Split (incl. gilda fied surface antigen) 11/25/2011 MMR 12/06/2000 Moderna Covid-19 Vaccine 12+ 07/28/2020,07/01/19 21 TD (adult), 2 Lf tetanus tox oid, preservative free, adsorbed 12/06/2000 Tdap 11/24/2023,01/15/2011 Family History Medical History Relation Name Comments Liver cancer Brother Heart disease Father Asthma Mother Diabetes Mother Breast cancer Sister Relation Name Status Comments Brother Father Mother Sister Social History Tobacco Use Types Packs/Day Years Used Date Smoking Tobacco: Every Day Cigarettes Alcohol Use Standard Drinks/Week Comments Never 0 (1 standard drink = 0.6 oz pur e alcohol) Depression Answer Date Recorded Patient Health Questionnaire-9 Score 19 11/24/2023 Patient Health Questionnaire-9 Score 11/24/2023 Last PHQ-9: Questionnaire Data Not on file 0 11/24/2023 Housing Stability Answer Date Recorded What is your housing situation today? I have og mercedes 11/10/[address] you li ve. Do you have problems with any of the following? None of the above 11/10/2023 Food Insecurity Answer Date Recorded Within the past 12 months, y ou worried that your food would run out before you got money to buy more: Never True 11/10/2023 Within the past 12 months,th e food you bought just didn't last and you didn't have enough money to get more: Never True Transportation Answer Date Recorded In the past 12 months, has l ack of transportation kept you from medical appts, meetings, work or from getting things needed for daily living? Yes, it has kept me from medical appointments or getting medications. 11/10/2023 Utilities Answer Date Recorded In the past 12 months, has t he electric, gas, oil or water company threatened to shut off services in your home? No 11/10/2023 Depression Answer Date Recorded Patient Health Questionnaire-2 Score 4 11/24/2023 Internet Access Answer Date Recorded Internet Access Q1 Yes 11/25/2023 Internet Access Q2 Not on file 11/25/2023 Comments Unknown Intention Date Recorded No desire to become (finding) 0 08/22/2024 Sex and Gender Information Value Date Recorded Sex Assigned at Female 01/25/2022 10:14 AM EDT Legal Sex Female 10:14 AM EDT Gender Identity Female 01/25/2022 10:14 AM EDT Sexual Orientation Straight 01/25/2022 10 :14 AM EDT Last Filed Vital Signs Vital Sign Reading Time Taken Comments Blood Pressure 132/80 08/22/2024 10:49 AM EDT Pulse 68 04/25/2024 3:28 PM EST Temperature 37.2 C (98.9 F) 08/22/2024 10:33 AM EDT Respiratory Rate 20 08/22/2024 10:33 AM EDT Oxygen Saturation 98% 08/22/2024 10:33 AM EDT Inhaled Oxygen Concentration - - Weight 88.6 kg (195 lb 6.4 oz) 08/22/2024 10:33 AM EDT Height 149.9 cm (4' 11 ) 08/22/2024 10:33 AM EDT Body Mass Index 39.47 08/22/2024 10:33 AM EDT Plan of Treatment Upcoming Encounters Date Type Department Care Team (Late st Contact Info) Description 02/28/2025 3:00 PM EST Office Visit [facility] OPTOMETRY [address] [place] [address] Hilda Orta, OD [address] [place] [address] Health Maintenance Due Date Last Done Comments CT Colonography 1974 Colonoscopy 1974 Colorectal Cancer Screening 1974 FIT DNA/Cologuard 1974 FIT 1974 FOBT 1975 Sigmoidoscopy 1974 Alcohol/Substance Use Screening 1986 Pap Smear 11/26/2020 11/26/2017 Depression Monitoring 05/25/2024 11/24/2023, 024 SDOH Screening 11/09/2024 11/10/2023 COVID-19 Vaccine ( season) 2024 07/28/2020, 06/30/2020 Influenza Vaccine (#1) 2024 11/25/2011 Pneumococcal Vaccine: 50+ Years (1 of 2 - PCV) 04/25/2025 Postponed from 1993 (Patient Refused) Zoster Vaccines (1 of 2) 04/25/2025 Pos tponed from 02/27/2024 (Patient Refused) Cervical Cancer Screening 07/02/2025 HPV/Cotest 07/02/2025 07/02/2020, 04/0 09/2020, 12/02/2017, Additional history exists Disability Screening 08/22/2025 08/22/2024 Family Planning (PISQ) 08/22/2025 08/22/2024 Tobacco Screening 08/22/2025 08/22/2024 Mammogram 12/20/2025 12/21/2023, 04/28, 05/09/2020, Additional history exists Lipid Panel 11/23/2028 11/24/2023, 04/01/2022 DTaP/Tdap/Td Vaccines (3 - Td or Tdap) 11/23/2033 11/24/2023, 01/15/2011, 12/06/2000 RSV Patients and Patients Aged 60 years or older (1 - 1-dose 75+ series) 2049 HIV Screening Completed 11/24/2023, 04/01/2022 Hepatitis C Screening Completed 11/24/2023, 023 Hepatitis A Vaccines Aged Out 02/20/2024 No long er eligible based on patient's age to complete this topic Hepatitis B Vaccines Completed 08/22/2024, 02/20/2024, 11/24/2023 HIB Vaccines Aged Out No longer eligi ble based on patient's age to complete this topic HPV Vaccines Aged Out No longer eligi ble based on patient's age to complete this topic IPV Vaccines Aged Out No longer eligi ble based on patient's age to complete this topic Meningococcal B Vaccine Aged Out No l onger eligible based on patient's age to complete this topic Meningococcal Vaccine Aged Out No celena rogelio eligible based on patient's age to complete this topic RSV under 20 months Aged Out No longe r eligible based on patient's age to complete this topic Rotavirus Vaccines Aged Out No longer eligible based on patient's age to complete this topic Procedures Procedure Name Priority Date/Time Associated Diagnosis Comments BI MAMMOGRAM SCREENING TOMOSYNTHESIS BILATERAL Routine 12/21/2023 3:30 PM EDT Screening mammogram for breast cancer HEPATITIS C AB W/REFL TO HCV RNA, QN, PCR Routine 11/24/2023 10:48 AM EDT Routine screening for STI (sexually transmitted infection) HIV 1/2 ANTIGEN/ANTIBODY, FOURTH GENERATION W/RFL Routine 11/24/2023 10:48 AM EDT Routine screening for STI (sexually transmitted infection) LIPID PANEL, STANDARD Routine 11/24/2023 10:48 AM EDT Obesity due to excess calories with serious comorbidity, unspecified classification ZZZ HISTORICAL HPV E6/E7 RFLX ROGER 16 18/45 Routine 07/02/2020 12:27 PM EDT PAP SMEAR Routine 11/26/2017 from Last 3 Months or Most Recently Relevant to Health Maintenance Results * BI Mammogram Screening Tomosynthesis Bilateral (12/21/2023 3:30 PM EDT) Anatomical Region Laterality Modality Breast Bilateral Mammography 12/21/2023 3:30 PM EDT Narrative 01/11/2024 11:48 AM EDT [address] [place], [place] [address] Mammography Report Signed Patient: Tameka Ramos MR#: [id number] 6 : 1975 Acct:[id number] Age/Sex: 48 / F ADM Date: 12/21/23 Loc: HO.MAMMO Attending Dr: Sofia Garcia MD Ordering Physician: Sofia Garcia MD Results: 1N egative Date of Service: 12/21/23 Follow Up: 1 Year From Orig inal Mammogram Procedure(s): MM tomosynthesis screening BI Accession Number(s): [id number] cc: Sofia Garcia MD EXAMINATION: MM SCREENING DIGITAL BREAST TOMOSYNTHESIS, BILATERAL CLINICAL INFORMATION: Screening. Asymptomatic. COMPARISON: Mammography: Comparison is made with available priors TECHNIQUE: Digital breast mammography with tomosynthesis is performed in both the craniocaudal and mediolateral oblique views along with computer-aided detection (CAD). FINDINGS: There are scattered areas of fibroglandular density (ACR BI-RADS breast composition Category b). There are no significant masses, abnormal calcifications, or other abnormalities. MM/MM tomosynthesis screening BI IMPRESSION: No mammographic evidence of malignancy. ASSESSMENT: BI-RADS BI-RADS 1 - Negative RECOMMENDATION: Routine annual mammography screening. 1 year F/U This examination should not preclude the clinical evaluation of a suspicious palpable abnormality. This patient's information was entered into a reminder system with a target due date for their next mammogram. Electronically signed by: Jade Gillis DO 01/11/2024 11:46 AM EDT Dictated By: Jade Gillis DO Signed By: <Electronically signed by Jade Gillis DO in OV> 01/11/24 1146 DD/ 1530 TD/TT: 12/21/23 1553 Blasting Worker: Procedure Note Donotuseinterpreter, Image - 01/11/2024 [facility] [address] [place] [address] [place] [address] Mammography Report Signed Patient: Tameka RamosMR#: [id number] 6 : 1975Acct:[id number] Age/Sex: 48 / FADM Date: 12/21/23 Loc: HO.MAMMO Attending Dr: Sofia Garcia MD Ordering Physician: Sofia Garcia MDResults: 1N egative Date of Service: 12/21/23Follow Up: 1 Year From Orig inal Mammogram Procedure(s): MM tomosynthesis screening BI Accession Number(s): [id number] cc: Sofia Garcia MD EXAMINATION: MM SCREENING DIGITAL BREAST TOMOSYNTHESIS, BILATERAL CLINICAL INFORMATION: Screening. Asymptomatic. COMPARISON: Mammography: Comparison is made with available priors TECHNIQUE: Digital breast mammography with tomosynthesis is performed in both the craniocaudal and mediolateral oblique views along with computer-aided detection (CAD). FINDINGS: There are scattered areas of fibroglandular density (ACR BI-RADS breast composition Category b). There are no significant masses, abnormal calcifications, or other abnormalities. MM/MM tomosynthesis screening BI IMPRESSION: No mammographic evidence of malignancy. ASSESSMENT: BI-RADS BI-RADS 1 - Negative RECOMMENDATION: Routine annual mammography screening. 1 year F/U This examination should not preclude the clinical evaluation of a suspicious palpable abnormality. This patient's information was entered into a reminder system with a target due date for their next mammogram. Electronically signed by: Jade Gillis DO 01/11/2024 11:46 AM EDT Dictated By: Jade Gillis DO Signed By: <Electronically signed by Jade Gillis DO in OV> 01/11/24 1146 DD/ 1530 TD/TT: 12/21/23 1553 Blasting Worker: Sofia Garcia MD IMG BI PROCEDURES Final Re sult * Hepatitis C Antibody with Reflex to HCV, RNA, Quantitative, Real-Time PCR (11/24/2023 10:48 AM EDT) Hepatitis C Antibody Nonreactive Nonreactive [facility] Comment:Antibodies to HCV no t detected; does not exclude early acuteHCV infection. Blood Venous blood specimen / Unknown 11/24/2023 10:48 AM EDT 11/24/2023 1:12 PM EDT Sofia Garcia MD LAB BLOOD ORDERABLES Final Result Performing Organization Address City/[facility]/ZIP Co de Phone Number [facility] [address] [place] [address] [phone] * HIV-1/2 Antigen and Antibodies, Fourth Generation, with Reflexes (11/24/2023 10:48 AM EDT) HIV AB/AG Nonreactive Nonreactive [facility] Comment:HIV-1 p24 Ag and/or HIV-1/HIV-2 Ab not detected.A test result that is nonreactive does not exclude thepossibility of exposure to or infection with HIV-1 and/orHIV-2. Nonreactive results in this assay for individualswith prior exposure to HIV-1 and/or HIV-2 may be due toantigen and antibody levels that are below the limit ofdetection of this assay.The [id number] HIV Ag/Ab Combo assay result andsupplemental assay results should be interpreted inconjunction with the patient's clinical presentation,history and other laboratory results. If the results areinconsistent with clinical evidence, additional testing issuggested to confirm the result. Blood Venous blood specimen / Unknown 11/24/2023 10:48 AM EDT 11/24/2023 1:12 PM EDT Sofia Garcia MD LAB BLOOD ORDERABLES Final Result Performing Organization Address City/[facility]/ZIP Co de Phone Number [facility] [address] [place] [phone] * (ABNORMAL) Lipid Panel, Standard (11/24/2023 10:48 AM EDT) Triglycerides 94 <150 mg/dL [facility] Comment:Desirable Triglyceri de: less than 150 mg/dLBorderline High Triglyceride 150-199 mg/dLHigh Triglyceride: 200-499 mg/dLVery High Triglyceride: greater than or equal to 5OO mg/dL Cholesterol 186 <200 mg/dL [facility] Comment:Desirable Cholestero l: less than 200 mg/dLBorderline High Cholesterol: 200-239 mg/dLHigh Cholesterol: greater than 239 mg/dL LDL Cholesterol Calculated 123(H) <100 mg/dL [facility] Comment:Desirable LDL: less than 100 mg/dLNear Optimal/Above Optimal LDL: 110- 129 mg/dLBorderline High LDL: 130-159 mg/dLHigh LDL: 160-189 mg/dLVery High LDL: greater than or equal to 190 mg/dL HDL Cholesterol 45 >40 mg/dL [facility] Comment:Desirable HDL: great er than 40 mg/dL Note: This HDL assay may give artificially low results in patients with liver disease. Blood Venous blood specimen / Unknown 11/24/2023 10:48 AM EDT 11/24/2023 1:12 PM EDT us Sofia Garcia MD LAB BLOOD ORDERABLES Final Result [facility] [address] [place] [phone] * HPV E6/E7 RFLX ROGER 16 18/45 (07/02/2020 12:27 PM EDT) HPV mRNA E6/E7 rflx Not Detected Not Detected [facility] Comment: Methodology: Welt [employer]er-Mediated Amplification This assay detects E6/E7 viral messenger RNA (mRNA) from 14 high-risk HPV types (16,18,31,33,35,39,45,51,52,56,58,59,66,68). The analytical performance characteristics of this assay have been determined by [employer]. The modifications have not been cleared or approved by the FDA. This assay has been validated pursuant to the CLIA regulations and is used for clinical purposes. For additional information, please refer to http://education.[employer]/faq/KAG653o7 (This link if provided for information/ educational purposes only.) THIS TEST WAS PERFORMED AT: [facility] [address] [facility] [address],[place] [address] MAUREEN HENRIQUEZ MD 07/02/2020 12:2 7 PM EDT us Andre Rae MD HISTORICAL/NON ORDERABLE LABS Fi nal Result [facility] [address] * Pap Smear (11/26/2017) Swab 11/26/2017 us Sofia Garcia MD LAB CYTOLOGY ORDERABLES Fi nal Result from Last 3 Months or Most Recently Relevant to Health Maintenance Insurance HMO Advance Directives Documents on File Type Date 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
[2025-02-15 14:01] VITALS: BMI 38.9
[2025-02-19 08:08] VITALS: BMI 34.0
[2025-02-19 08:10] LABS: UPreg QC Valid YES
[2025-02-19] MEDS: Lactated Ringers 1,000 ML 100 ML IVCONT (08:14)
[2025-02-19 08:22] VITALS: BP 107/70; PULSE 73; RESP 18; TEMP 36.7; O2SAT 99
--- NOTE | 2025-02-19 08:27 | MHC.SHP ---
Pre-Procedural Eval Section A - 24 Hr Update-Section A only Date of Service: 02/19/25 Section B - Complete if H&P > 30 days Chief Complaint: gerd,screening Details of Present Illness: Abdominal pain Acid reflux delivery delivered Chronic constipation Surgical History Hx of section Present Medications: see Short Stay Collaborative assessment Allergies: Allergies Allergy/AdvReac Type Severity Reaction Status Date / Time No Known Allergies (No Known Allergy Verified 02/19/25 07:59 Allergies*) Review of Systems Review of Systems Comment: Ten point ROS negative Exam Exam Comment: Gen appear: No acute distress HEENT: no icterus Chest: No overt resp distress Abd: soft, nontender, nondistended Psych: Stable affect, answering questions appropriately Neuro: A/Ox3 noted to move all extremities spontaneously Ext: no peripheral edema Plan Diagnosis/Plan: Unchanged I have reviewed the history and physical and performed a pertinent physical examination on my patient. No changes have occurred unless specified. Time Spent With Patient Time: Total time managing care of this patient today ____ minutes.
--- NOTE | 2025-02-19 08:37 | HO.ANESPROP2 ---
Documented by User: Penelope Alexander NP 02/18/25 11:49 HPI - Anesthesia Eval Consult details Narrative: 49 yr old female for upper EGD, colonoscopy BMI close to 40 Anesthesia Pre-Procedure Meds Is the patient on any of the following meds?: GLP1/DPP4 PMFSH Active Problems Active Problems: All Active Problems (Updated 07/17/24 @ 17:34 by Dot Elizabeth CNP) Encounter for screening colonoscopy (Acute) Menometrorrhagia (Acute) Abdominal pain (Acute) Chronic constipation (Acute) Acid reflux (Acute) Past Medical History Medical History Abdominal pain Chronic constipation Acid reflux delivery delivered Family History Family History Father No problems noted. Surgical History Surgical History (Updated 02/19/25 @ 08:23 by Ana Baldwin, RN) History of esophagogastroduodenoscopy (EGD) Hx of section Social History Social History Household Members: Children Are you a primary assistant child care teacher to a significant other at home: No Do you presently have visiting nurse or other home services: No Alcohol intake: current Alcohol intake frequency: holidays/special occasions only Alcohol type: beer Patient Tobacco Use Status: Current everyday Tobacco user Tobacco use type: Cigarette Cigarettes Per Day: 10 Smoked in Last 30 Days: Yes Patient Interested in Nicotine Replacement: No Substance Use Frequency: Daily Have you been hit, kicked, punched, or otherwise hurt by someone within the past year? If so, by whom?: No Are you DNR?: No Advance Directives: No Advance Directives Information Provided: Yes FDP: October 2024 Current occupational status: employed Meds Allergies Allergy/AdvReac Type Severity Reaction Status Date / Time No Known Allergies (No Known Allergy Verified 02/19/25 07:59 Allergies*) Home Medications ?Medication ?Instructions ?Recorded ?Confirmed ?Last Taken ?Type omeprazole 20 mg capsule,delayed 20 mg PO BID 06/17/20 02/15/25 Unknown History release ferrous sulfate 325 mg (65 mg 325 mg PO Q OTHER DAY 06/03/21 02/15/25 Unknown History iron) tablet (FeroSul) loratadine 10 mg tablet 10 mg PO DAILY 06/03/21 02/15/25 Unknown History tirzepatide (weight loss) 7.5 mg subcut QWEEK 02/19/25 02/11/25 History mg/0.5 mL subcutaneous pen injector (Zepbound) Exam Height,Weight and Vital Signs: Height 5 ft Weight 90.265 kg Documented by User: Kimberlyn Salas DO 02/19/25 08:39 HPI - Anesthesia Eval Consult details Narrative: 49 yr old female for upper EGD, colonoscopy Anesthesia Pre-Procedure Meds Is the patient on any of the following meds?: GLP1/DPP4 PMFSH Past Medical History Medical History Abdominal pain Chronic constipation Acid reflux delivery delivered Family History Family History Father No problems noted. Family history of problems with anesthesia: No Surgical History Surgical History (Updated 02/19/25 @ 08:23 by Ana Baldwin RN) History of esophagogastroduodenoscopy (EGD) Hx of section History of Problems with Anesthesia: No Social History Social History Household Members: Children Are you a primary assistant child care teacher to a significant other at home: No Do you presently have visiting nurse or other home services: No Alcohol intake: current Alcohol intake frequency: holidays/special occasions only Alcohol type: beer Patient Tobacco Use Status: Current everyday Tobacco user Tobacco use type: Cigarette Cigarettes Per Day: 10 Smoked in Last 30 Days: Yes Patient Interested in Nicotine Replacement: No Substance Use Frequency: Daily Have you been hit, kicked, punched, or otherwise hurt by someone within the past year? If so, by whom?: No Are you DNR?: No Advance Directives: No Advance Directives Information Provided: Yes FDP: October 2024 Current occupational status: employed Meds Allergies Allergy/AdvReac Type Severity Reaction Status Date / Time No Known Allergies (No Known Allergy Verified 02/19/25 07:59 Allergies*) Home Medications ?Medication ?Instructions ?Recorded ?Confirmed ?Last Taken ?Type omeprazole 20 mg capsule,delayed 20 mg PO BID 06/17/20 02/15/25 Unknown History release ferrous sulfate 325 mg (65 mg 325 mg PO Q OTHER DAY 06/03/21 02/15/25 Unknown History iron) tablet (FeroSul) loratadine 10 mg tablet 10 mg PO DAILY 06/03/21 02/15/25 Unknown History tirzepatide (weight loss) 7.5 mg subcut QWEEK 02/19/25 02/11/25 History mg/0.5 mL subcutaneous pen injector (Zepbound) Exam Exam Date and Time: 02/19/25 0838 Height,Weight and Vital Signs: Height 5 ft Weight 78.925 kg Vital Signs Temperature 98.1 F 02/19/25 08:22 Pulse Rate 73 02/19/25 08:22 Respiratory Rate 18 02/19/25 08:22 Blood Pressure 107/70 02/19/25 08:22 Pulse Oximetry 99 02/19/25 08:22 Oxygen Delivery Method Room Air 02/19/25 08:22 Temperature 98.1 F 02/19/25 08:22 Pulse Rate 73 02/19/25 08:22 Respiratory Rate 18 02/19/25 08:22 Blood Pressure 107/70 02/19/25 08:22 Pulse Oximetry 99 02/19/25 08:22 Oxygen Delivery Method Room Air 02/19/25 08:22 Height 5 ft Weight 90.265 kg Airway Mallampati Class: I TM Dist: >3cm Neck ROM: Full Loose/Missing/Broken Teeth: No (patient denies any loose or broken teeth) Heart: S1S2 Lungs: CTAB Assessment and Plan Assessment Anesthesia Assessment: Anesthesia Plan Discussed and Chart Reviewed Final Anesthetic Review Family History of Problems with Anesthesia: No History of Problems with Anesthesia: No NPO: Yes ASA Class: II Final Preanesthetic Review: No Changes in Pt Med Stat, Meds/Allgs Chart Reviewed, Consent Obtained/Reviewed and Anes Risks/Benef Reviewed Patient Risk: Low Procedure Risk: Low Anesthetic Plan Anesthetic Plan: MAC: and Agree w/ Assess. and Plan Disposition: Standard PACU
[2025-02-19 09:42] VITALS: BP 84/38; PULSE 66; RESP 12; TEMP 36.1; O2SAT 97
[2025-02-19 09:47] VITALS: BP 83/40; PULSE 62; RESP 17; O2SAT 96
--- NOTE | 2025-02-19 09:48 | P.OPN-COLO_ITS ---
Colonoscopy Operative Note Operative Note Date of Service: 02/19/25 Narrative: Procedure: Upper endoscopy and colonoscopy Indication: GERD, screening Endoscopist: Zuleika Melissa MD Anesthesia Provider: Kai Cade CRNA Anesthesia type: MAC Instrument: [id number]-H190 and [id number]-[id number] EGD Procedure:?? The procedure, indications, preparation and potential complications were reviewed with the patient, who indicated understanding and gave written informed consent to proceed. The endoscope was introduced through the mouth, and advanced to the 2nd part of the duodenum. The mucosa was carefully examined on slow withdrawal of the endoscope. The patient tolerated the procedure well. There were no immediate complications.? EGD Findings:? * Esophagus:? Ulceration measuring 10 mm noted at the GE junction that did not cross the top of the mucosal folds. Remaining mucosa was normal to the extent examined. The Z-line was at 35 cm. * Stomach:? Erythema and erosions in the antrum were noted. Retroflexion was performed in the cardia. Cold forceps biopsies were taken from the stomach body and antrum. * Duodenum:? Significant edema, erythema and congestion noted in the duodenal bulb and 1st portion of duodenum. Cold forceps biopsies were taken for histology. Colonoscopy Procedure:? The patient was then turned for the colonoscopy. A digital rectal exam was performed which was normal.? A distal attachment cap was affixed to the tip of the scope and the colonoscope was then inserted through the anus and advanced through the colon and advanced to the cecum at 75 cm and terminal ileum.? Appendiceal orifice and ileocecal valve were identified. Mucosa was carefully examined under high definition white light as the instrument was slowly withdrawn in a retrograde panoramic fashion. Retroflexion was performed in and rectum. The procedure was not difficult. The quality of the prep was BBPS: 3+2+3 = adequate Withdrawal time 11 minutes Limitations: No limitations Findings: Mucosa: Normal colon and terminal ileum mucosa. Protruding lesions: * Small internal hemorrhoids without stigmata of recent bleeding. Impression: 1. Grade B esophagitis 2. Gastritis (biopsy) 3. Duodenitis (biopsy) 4. Normal colon and terminal ileum mucosa 5. Internal hemorrhoids Recommendations:?? * Follow-up path results * Avoid NSAIDs * Switch PPI to lansoprazole 15 mg twice a day for 8 weeks and then once daily * H Pylori treatment if biopsies + * Repeat colonoscopy for asymptomatic CRC screening in 10 years.
[2025-02-19 09:52] VITALS: BP 89/48; PULSE 60; RESP 20; O2SAT 99
[2025-02-19 09:57] VITALS: BP 92/65; PULSE 67; RESP 17; TEMP 36.1; O2SAT 99
== END 2025-02-19 10:25 | disposition home or self-care (01) ==
PROVIDERS: Nurse Practitioner; PCP Family Medicine; Visit Provider Internal Medicine
PROC: (CPT 45378; principal; 2025-02-19 09:10)
DX: Z12.11 Encounter for screening for malignant neoplasm of colon (principal); K21.00 Gastro-esophageal reflux disease with esophagitis, without bleeding; K59.09 Other constipation; K64.8 Other hemorrhoids; K22.10 Ulcer of esophagus without bleeding; K29.70 Gastritis, unspecified, without bleeding
CPT/HCPCS: 45378; 43239; 81025; 88305; 88313; 88341; 88342; 88360; J2003; J2704

== ENCOUNTER → 2025-02-19 07:45 | Outpatient (BNV) | payer BC, MEDICAID, SELFPAY | PROVIDERS: PCP Family Medicine; Visit Provider Internal Medicine | DX: Z12.11 Encounter for screening for malignant neoplasm of colon (principal); K64.8 Other hemorrhoids; K21.00 Gastro-esophageal reflux disease with esophagitis, without bleeding; K29.70 Gastritis, unspecified, without bleeding; K29.80 Duodenitis without bleeding | CPT/HCPCS: 43239; 45378 ==

== ENCOUNTER 2025-03-14 15:56 | Outpatient (AMB) | payer BC, MEDICAID, SELFPAY ==
--- NOTE | 2025-03-14 15:59 | A.OFFVIS_ITS ---
Vital Signs 03/14/25 16:09 Height 5 ft Weight 176 lb BMI 34.4 BP 98/62 Blood Pressure Location Rt brachial Position Sitting Pulse 70 Pulse Source Pulse Oximeter Pulse Oximetry (%) 100 Oxygen Delivery Method Room Air Intake Visit Reasons: EGD/Colonoscopy results Intake Note: Patient follow up for acid reflux and s/p double results Patient cc: C/O GERD persistence on account of not having her medication. Pt unfortunately did not get the Rx from the pharmacy as there was need for a PA? No additional sx or concerns at this time. Global Project Manager Required: No Accompanied by: Self / Same As Patient Allergies No Known Allergies (No Known Allergies*) Allergy (Verified 03/14/25 15:59) HPI HPI EGD/Colonoscopy results: Details: Patient is a 49-year-old female with PMH of nicotine dependence, GERD and chronic constipation. Follow-up visit to discuss the results of her recent upper endoscopy and colonoscopy. The upper endoscopy was indicated for evaluation of reflux symptoms. The recent colonoscopy was complete to the terminal ileum with an adequate bowel preparation. Findings included normal colon mucosa and internal hemorrhoids, with a recommendation for a repeat colonoscopy in 10 years. The patient has a history of constipation, which she notes has worsened recently, possibly due to tirzepatide . She experienced a severe episode of constipation a few days after her colonoscopy, which resolved after taking Dulcolax. The upper endoscopy revealed grade B esophagitis, gastritis, and duodenitis. A 0.8 mm, grade 1 neuroendocrine tumor was discovered in the duodenum and was completely removed with negative margins. She has a history of complaining of heartburn symptoms for years. A prior upper endoscopy in 2014 showed superficial gastritis and she was positive for H. pylori. [facility] Medical History (Updated 03/15/25 @ 07:52 by Dot Elizabeth CNP) Well differentiated neuroendocrine neoplasm of duodenum Abdominal pain Chronic constipation Acid reflux delivery delivered Surgical History Hx of colonoscopy History of esophagogastroduodenoscopy (EGD) Hx of section Family History Father No problems noted. Social History Household Members: Children Are you a primary doggy daycare activities director to a significant other at home: No Do you presently have visiting nurse or other home services: No Alcohol intake: current Alcohol intake frequency: holidays/special occasions only Alcohol type: beer Patient Tobacco Use Status: Current everyday Tobacco user Tobacco use type: Cigarette Cigarettes Per Day: 10 Current occupational status: employed Female Reproductive History Menstrual Age of Menarche: 8 Review of Systems Const All systems reviewed & are unremarkable except as noted in HPI and below Reports as per HPI ENT Reports as per HPI Card Reports as per HPI Resp Reports as per HPI GI Reports as per HPI Reports as per HPI Physical Exam Vital Signs: Last Vital Signs Pulse 70 03/14/25 16:09 BP 98/62 03/14/25 16:09 Pulse Ox 100 03/14/25 16:09 Oxygen Delivery Method Room Air 03/14/25 16:09 BMI result Body Mass Index 34.4 Const General: healthy appearing, no acute distress and well developed Nutritional Appearance: average body habitus Orientation/consciousness: patient oriented x3 HEENT Head: Yes normal to inspection, Yes normocephalic and Yes atraumatic Face and sinus: Yes normal facial exam Eyes General: appearance normal, both eyes and all related structures Neck Neck: Yes normal visual inspection Resp Effort & Inspection: normal respiratory effort, able to speak in complete sentences, no tracheal deviation and symmetric chest movement Cardio Jugular venous distension: no JVD Neuro General: patient oriented x3 Gait exam (Neuro): Normal gait present Psych Appearance: grossly normal Mental Status: mental status grossly normal Speech and movement: Normal speech and movement present Affect: normal affect Attitude: cooperative Thought process: Normal thought process present Thought content: Normal thought content present Insight: Good insight present (Psych) Judgement: Good judgement present (Psych) Assessment & Plan Assessment & Plan (1) Well differentiated neuroendocrine neoplasm of duodenum: Comment: -0.8 mm well-differentiated (grade 1) duodenal NET, Negative margins, pT1 NX Code(s): C7A.8 - Other malignant neuroendocrine tumors Category: Medical Plan: Explanation provided that the tumor is a form of cancer; though small and removed, indicating excellent prognosis and very low rates of recurrence or metastasis. However, further evaluation is necessary to r/o lymph node involvement. An urgent CT ab/pelvis will be ordered to further evaluate this. - A repeat upper endoscopy is planned in 3 months for surveillance. - The patient was provided with an educational handout about neuroendocrine tumors. -close follow up to address any questions and revisit next steps. Encouraged to bring a support stave log cut off saw operator with her if able. (2) Acid reflux: Comment: -02/19/25 egd -Grade B esophagitis, Gastritis, Duodenitis. -EGD 10/15/2014: superficial gastritis Code(s): K21.9 - Gastro-esophageal reflux disease without esophagitis Category: Medical Qualifiers: Esophagitis presence: without esophagitis Qualified Code(s): K21.9 - Gastro-esophageal reflux disease without esophagitis Plan: Stable. Will send a prescription for a disintegrating tablet form of lansoprazole, which per [facility] formulary does not require a prior authorization. - Counseled the patient to quit smoking and avoid dietary triggers such as caffeine, carbonation, and fatty/fried foods. (3) Chronic constipation: Comment: 02/19/25 colonoscopy -Normal colon and terminal ileum mucosa. Internal hemorrhoids. Repeat in 10 years (2034). Code(s): K59.09 - Other constipation Category: Medical Plan: Chronic, exacerbated by GLP-1. Daily pharmacological management is likely necessary. -The option of daily MiraLax was discussed, but the patient deferred, preferring to attempt better adherence with her existing Senna pills -Reinforced the importance of lifestyle modifications, including increasing dietary fiber, ensuring adequate hydration with water, and regular exercise. - Also advised to manage constipation to prevent worsening of hemorrhoids, including avoiding straining and prolonged sitting on the toilet. Plan Follow-up scheduled for 04/03/24 or sooner as needed Time: I spent a total of 34 minutes on the date of encounter which includes: Preparing to see the patient (reviewed previous documentation, test results and medical history) Performing a medically appropriate exam and/or evaluation Ordering medications, tests, and procedures Documenting clinical information in the health record Orders: Orders CT abdomen pelvis w IV con 03/14/25 C7A.8 - Other malignant neuroendocrine tumors Basic Metabolic Panel 03/14/25 Z01.812 - Encounter for preprocedural laboratory examination Referrals GI Procedure Notification C7A.8 - Other malignant neuroendocrine tumors, K29.80 - Duodenitis without bleeding Medications: New lansoprazole Place one tablet on tongue twice daily for 8 week; followed by one tablet daily. Allow to dissolve (with or without water) until particles can be swallowed. 15 mg PO BID 180 tabs 0RF 90 days Discontinued lansoprazole Take 1 pill twice a day for 8 weeks and then once daily Discontinued Reason: Insurance Denied 15 mg PO BID 90 days 180 tabs 0RF Coding Level of Care Code Established Pt Est Pt Level 4 (78188) Patient Type Established Diagnoses Well differentiated neuroendocrine neoplasm of duodenum C7A.8 Gastroesophageal reflux disease without esophagitis K21.9 Esophagitis presence: without esophagitis Chronic constipation K59.09
[2025-03-14 16:09] VITALS: BP 98/62; PULSE 70; O2SAT 100; BMI 34.4
--- OUTSIDE RECORDS SUMMARY | 2025-03-14 19:34 | XMS_ITS | Encounter Summary ---
Author Organization [employer] Address [address] [place] [address] [address] [place] [address] Care Team Providers Care Camera Assembler Name Role Phone Sofia Garcia MD Primary Care Provider [phone]- [phone] Nhi Monroe Unavailable Encounter Details Date Type Department Care Team (Latest Contact Info) Description 11/28/2019 Abstract [facility] CONVERSIONS Dental, Provider, DDS Social History [...] Care Team (Late st Contact Info) Description 04/10/2025 10:30 AM EST Office Visit [facility] MEDICINE [address] [place] [address] Sofia Garcia MD [address] [place] [address] documented as of this encounter Visit Diagnoses Not on filedocumented in this encounter Care Teams Camera Assembler Relationship Specialty Start Date End Date Sofia Garcia MD [address] [place] [address] PCP - General Family Medicine 03/28/18 Nhi Monroe [address] [place] [address] [address] [place] [address] Gastroenterology 07/19/24 documented as of this encounter
--- OUTSIDE RECORDS SUMMARY | 2025-03-14 19:34 | XMS_ITS | Clinical Summary ---
Author Organization [employer] Address [address] [place] [address] 7t [place] [address] Care Team Providers Care Medical Records Assistant Name Role Phone Sofia Garcia MD Primary Care Provider +1- [phone] Nhi Monroe Unavailable Allergies No known active allergies Medications * This document contains information received from the source organization and may not represent a complete record from that organization. Senna-Time 8.6 MG tabletIndicatio ns:Constipation , unspecified constipation type Take 1-2 tabs [p at bedtime prn constipation 180 tablet 3 025 Active Blood Pressure kitIndications: Elevated blood pressure reading Check blood pressure twice a week or prn 1 kit 025 Active Zepbound 7.5 MG/0.5ML solution auto-injectorIn dications:Class 3 severe obesity due to excess calories without serious comorbidity with body mass index (BMI) of 40.0 to 44.9 in adult (HCC) INJECT ONE PEN (=7.5MG) SUBCUTANEOUSLY ONCE A WEEK DIRECTED 2 mL 3 025 Active Bisacodyl EC 5 MG EC tablet TAKE 4 TABLETS BY MOUTH ONCE AT NOON BEFORE COLONOSCOPY. TAKE WITH PLENTY OF WATER 025 Active polyethylene glycol, PEG, 3350 (Glycolax) 17 GM/SCOOP powder MIX 238 GRAMS WITH 64 OUNCES GATORADE- NO RED, BLUE OR PURPLE) AND START DRINKING AT 5 PM 8 OZ EVERY 15 MIN UNTIL HALF IS GONE. CONTINUE LIQUIDS ONLY. AT 10 PM, FINISH 2ND HALF. 025 Active cholecalciferol (Vitamin D-3) 25 MCG (1000 UT) tabletIndicatio ns:Vitamin D Deficiency Take 1 tablet (25 mcg) by mouth Once per day. 90 tablet 3 024 2024 omeprazole (PriLOSEC) [address] capsuleIndicati ons:Gastric reflux Take 1 capsule (20 mg) by mouth 2 times daily. 180 capsule 1 024 2024 Discontinued(T herapy completed) metroNIDAZOLE (Metrogel) 0.75 % vaginal gelIndications: Bacterial Vaginosis Insert one applicator into vagina at bedtime for 7 nights 45 g 025 2024 Discontinued(T herapy completed) clindamycin (Clindagel) 1 % gelIndications: Hydradenitis Apply topically Once per day. 60 g 2 025 2024 Discontinued(T herapy completed) Zepbound 7.5 MG/0.5ML solution auto-injectorIn dications:Class 3 severe obesity due to excess calories without serious comorbidity with body mass index (BMI) of 40.0 to 44.9 in adult (HCC) INJECT ONE PEN (=7.5MG) SUBCUTANEOUSLY ONCE A WEEK DIRECTED 2 mL 3 02/08/20 1:35 PM EST 025 2024 Discontinued Active Problems Problem Noted Date Diagnosed Date Neuroendocrine tumor 02/28/2025 Overview (02/28/2025): EGD with Dr. Melissa on 02/19/25 Duodenum, biopsy: - Well-differentiated neuroendocrine tumor (carcinoid), grade 1; 0.8 mm in size; negative margin. - Background chronic inactive duodenitis. - pT1 NX (AJCC Stage 8th ed.). B. Stomach, antrum, biopsy: Antral-type mucosa with mild chronic inactive inflammation; no Helicobacter organisms identified. Esophagitis 02/19/2025 Overview (02/19/2025): Grage B esophagitis on EGD with Dr. Melissa 02/19/25. Await biopsy results. Elevated blood pressure reading 08/22/2024 Overview (08/22/2024): [...] Overview (02/20/2024): Lab Results Component Value Date [id number] 27.7 (L) 11/24/2023 -daily vit d started 11/30/23 - Had no received Vitamin D tablets from previous visit. Prescribing cholecalciferol (Vitamin D-3) 25 MCG (1000 UT) tablet 02/20/24 Assessment & Plan (02/20/2024 12:33 PM EST): Lab Results Component Value Date [id number] 27.7 (L) 11/24/2023 -daily vit d started [...] -encouraged cessation. Colon cancer screening 05/04/2023 Overview (02/19/2025): Normal colonoscopy 02/19/[address] Melissa. Assessment & Plan (04/25/2024 4:01 PM EST): [...] due after 11/22/24 -eye care facilitated by [facility] -dental recommended. -grisel care proxy given and filed 11/23/23 Assessment & Plan (11/24/2023 9:49 AM EDT): -Next Physical due after 11/22/24 -eye care facilitated by [facility] -dental recommended. -grisel care proxy given and filed 11/23/23 Fibromyalgia 04/01/2022 Overview (07/22/2022): Pt did not respond to gabapentin in the past. Trial of Lyrica 150 bid, NORM requested 06/10/2021. She did not tolerate the [...] albuterol prn Mixed bipolar affective disorder, moderate ([facility]) 01/06/2017 Overview (04/25/2024): Not currently on any [...] done. -3 bags a day. 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 [...] CPAP titration done because it was positional Moderate episode of recurren t major depressive disorder (CMS/HCC) 11/25/2011 Overview (11/22/2023): -declines behavior health referral [...] fat, and sodium. Exercise counseling 04/25/2024 08/23/19 25 Assessment & Plan (04/25/2024 3:48 PM EST): Exercise Recommendations: At least 150 minutes of moderate-intensity physical activity per week, or an equivalent combination of moderate- and vigorous-intensity activity Encounters Date Type Department Care Team Description 02/28/2025 3:00 PM EST Office Visit [facility] [address] [place] [phone] You, Hilda, OD Meibomian gland disease of both eyes, unspecified eyelid (Primary Dx); Retinal hole of left eye; Presbyopia 02/28/2025 Travel 02/25/2025 Refill [facility] [address] [place] [address] Sofia Garcia MD Class 3 severe obesity due to excess calories without serious comorbidity with body mass index (BMI) of 40.0 to 44.9 in adult (HCC) 12/24/2024 Telephone [facility] [address] [place] [address] Sofia Garcia MD February Recalls from Last 3 Months Immunizations Immunization Administration [...] Score 19 11/24/2023 Patient Health Questionnaire-9 Score 19 11/24/2023 Last PHQ-9: Questionnaire Data Not on [...] Description 04/10/2025 10:30 AM EST Office Visit [facility] [address] [place] [address] Sofia Garcia MD [address] [place], [place] [phone] Health Maintenance Due Date Last Done Comments CT Colonography 1974 FIT DNA/Cologuard 1975 FIT 1975 FOBT 1975 Sigmoidoscopy 1975 Alcohol/Substance Use Screening 1986 Pap Smear 11/26/2020 11/26/2017 RSV Patients and Patients Aged 60 years or older (1 - Risk 50-74 years 1-dose series) 02/27/2024 Depression Monitoring 05/25/2024 11/24/2023, 024 SDOH Screening [...] 08/22/2025 08/22/2024 Family Planning (PISQ) 08/22/2025 08/22/2024 Mammogram 12/20/2025 12/21/2023, 04/28, 05/09/2020, Additional history exists Tobacco Screening 02/28/2026 02/28/2025 Lipid Panel 11/23/2028 11/24/2023, 04/01/2022 DTaP/Tdap/Td Vaccines (3 - Td or Tdap) 11/23/2033 11/24/2023, 01/15/2011, 12/06/2000 Colonoscopy 02/19/2035 02/19/2025 Colorectal Cancer Screening 02/19/2035 HIV Screening Completed 11/24/2023, 04/01/2022 Hepatitis C [...] Procedure Name Priority Date/Time Associated Diagnosis Comments CHROMOGRANIN STAIN Routine 02/19/2025 9: 24 AM EST HCG, QL, URINE Routine 02/19/2025 8:00 AM EST HM COLONOSCOPY Routine 02/19/2025 BI MAMMOGRAM SCREENING TOMOSYNTHESIS BILATERAL Routine 12/21/2023 [...] Recently Relevant to Health Maintenance Results * Chromogranin Stain (02/19/2025 9:24 AM EST) 02/19/2025 9:24 AM EST 02/19/2025 11:11 AM EST Tasha [facility] - 02/27/2025 1:42 PM EST ----- ------- Name: Tameka Ramos Age/Sex: 49/F : 1975 Unit#: [id number] Attend Dr: Zuleika Melissa MD Re02/19/25 Status: [facility] Location: [facility] Disch: ----- ------- SPEC : [id number] RECD: 02/19/25 STATUS: LUCILLE ORTEZ NUM: [id number] LUCIO: 02/19/[address] [facility] [address]: Zuleika Melissa MD ENTERED: 02/19/25 SP TYPE: Surgical OTHR DR: Sofia Garcia MD ORDERED: Chromogranin St, HE Stain/9, Gross Micro L4/3, Synaptophysin, IHC/2, Add. immunos, IHC ER/NH/Her2N, Special st. 2/2, H. pylori/2, Ki-67, AB/PAS/2 Diagnosis A. Duodenum, biopsy: - Well-differentiated neuroendocrine tumor (carcinoid), grade 1; 0.8 mm in size; negative margin. - Background chronic inactive duodenitis. - pT1 NX (AJCC Stage 8th ed.). B. Stomach, antrum, biopsy: Antral-type mucosa with mild chronic inactive inflammation; no Helicobacter organisms identified. C. Stomach, body, biopsy: Oxyntic mucosa with mild chronic inactive inflammation; no Helicobacter organisms identified. Data Synopsis - NET Procedure Biopsy Tumor site Duodenum Tumor size 0.8 mm Tumor focality Unifocal Histologic type and grade Well differentiated Mitotic rate ( /2mm2) Less than 1 Ki67 Labeling Index (%) 1-2% Margins Deep Negative Mucosal Negative Other N/A LVI Not identified Tumor extension Limited to mucosa Regional lymph nodes Number examined 0 Number involved 0 TNM pT1 NX Clinical History Pre-Op Dx: GERD, screening Post-Op Dx: Duodenitis, esophagitis, grade B esophagitis, hemorrhoids CONTINUED ON NEXT PAGE ----- ------- Name: Tameka Ramos Age/Sex: 49/F : 1975 Unit#: [id number] Attend Dr: Zuleika Melissa MD Re02/19/25 Status: [facility] Location: [facility] Disch: ----- ------- SPEC : [id number] RECD: 02/19/25 STATUS: LUCILLE ORTEZ NUM: [id number] LUCIO: 02/19/[address] [facility] [address]: Zuleika Melissa MD ENTERED: 02/19/25 SP TYPE: Surgical OTHR DR: Sofia Garcia MD ORDERED: Chromogranin St, HE Stain/9, Gross Micro L4/3, Synaptophysin, IHC/2, Add. immunos, IHC ER/NH/Her2N, Special st. 2/2, H. pylori/2, Ki-67, AB/PAS/2 Microscopic Description A-C. Microscopic sections examined. No metaplastic changes are seen, supported by AB/PAS stains (B and C); no Helicobacter organisms are seen, supported by H. pylori immunostain (B and C). The neuroendocrine proliferation in part A is highlighted by synaptophysin and chromogranin immunostains and has a low proliferation index (approximately 1-2%) with Ki 67 immunostain. Material Received A. Duodenum bx's B. Gastric antrum bx's C. Gastric body bx's Gross Description Received in 3 parts. A. Received in formalin labeled duodenum biopsies are 5 fragments of pink white soft tissue measuring 0.2-0.3 centimeter in greatest dimension which are entirely submitted for microscopic examination, 5 pieces in cassette A. B. Received in formalin labeled gastric antrum biopsies are 3 fragments of rodríguez-white soft tissue measuring 0.3- 0.4 centimeter in greatest dimension which are entirely submitted for microscopic examination, 3 pieces in cassette B. C. Received in formalin labeled gastric body biopsies are 4 fragments of rodríguez-white soft tissue measuring 0.2-0.4 centimeter in greatest dimension which are entirely submitted for microscopic examination, 4 pieces in cassette C. ([facility]) This case was reviewed intradepartmentally; results were communicated to Dr. Melissa on 02/27/2025. Special studies ordered and performed: Immunostains for H. pylori on B and C and synaptophysin, chromogranin and Ki-67 on A; AB/PAS stains on A, B and C IHC S/NG Disclaimer NOTE: Unless otherwise stated, all tissue is formalin-fixed and paraffin-embedded. Some or all of the immunohistochemical tests reported herein may have been developed and their performance characteristics determined by [facility]. They have not been cleared or approved by the U.S. Food and Drug Administration (FDA). However, the FDA has determined that such clearance or approval is not necessary. This laboratory is CONTINUED ON NEXT PAGE ----- ------- Name: Tameka Ramos Age/Sex: 49/F : 1975 Unit#: [id number] Attend Dr: Zuleika Melissa MD Re02/19/25 Status: [facility] Location: [facility] Disch: ----- ------- SPEC : [id number] RECD: 02/19/25 STATUS: LUCILLE ORTEZ NUM: [id number] LUCIO: 02/19/[address] [facility] [address]: Zuleika Melissa MD ENTERED: 02/19/25 SP TYPE: Surgical OTHR DR: Sofia Garcia MD ORDERED: Chromogranin St, HE Stain/9, Gross Micro L4/3, Synaptophysin, IHC/2, Add. immunos, IHC ER/NH/Her2N, Special st. 2/2, H. pylori/2, Ki-67, AB/PAS/2 IHC S/NG Disclaimer (Continued) certified under the Clinical Laboratory Improvement Amendments of 1988 (CLIA) as qualified to perform high complexity clinical laboratory testing. Copies To: Sofia Garcia MD [address] [phone] Zuleika Melissa MD [facility] [address] [place] [address] [phone] [email or web address] ----- ------- Signed (signature on file) Joe Lazo MD 02/27/25 1342 ----- ------- END OF REPORT Generic External Data Provider LAB CYTOLOGY ORDE RABLES Final Result Performing Organization Address [facility] Co de Phone Number [facility] [address] [place] [phone] * HCG, Qualitative, Urine (02/19/2025 8:00 AM EST) Urine NEGATIVE NEGATIVE [facility] Comment:This test was develo ped to detect early . Falsenegative results may occur after the 5th - 7th week ofpregnancy when using this test method. If clinicallyindicated, consider a serum hCG. 02/19/2025 8:00 AM EST 02/19/2025 8:04 AM EST Generic External Data Provider LAB URINE ORDERAB LES Final Result Performing Organization Address [facility] Co de Phone Number [facility] [address] [place], [place] [phone] * Colonoscopy (02/19/2025) Colonoscopy Normal Normal Comment:Normal with Dr. Jaspal Melissa MD Historical Provider HEALTH MAINTENANCE Final Result * BI Mammogram Screening Tomosynthesis Bilateral (12/21/2023 3:30 PM EDT) Anatomical Region Laterality Modality Breast Bilateral Mammography 12/21/2023 3:30 PM EDT Narrative 01/11/2024 11:48 AM EDT [facility] [address] [place] [place] [address] Mammography Report Signed Patient: Tameka Ramos MR#: [id number] 6 : 1975 Acct:[id number] Age/Sex: 48 / F ADM Date: 12/21/23 Loc: HO.MAMMO Attending Dr: Sofia Garcia MD Ordering Physician: Sofia Garcia MD Results: 1N egative Date of Service: 12/21/23 Follow Up: 1 Year From Orig inal Mammogram Procedure(s): MM tomosynthesis screening BI Accession Number(s): [id number] cc: Sofia Garcia MD EXAMINATION: MM SCREENING [...] 01/11/24 1146 DD/ 1530 TD/TT: 12/21/23 1553 Sdet: Procedure Note Donotuseinterpreter, Image - 01/11/2024 [facility] [address] [place] [address] Dr. [place], [place] [address] Mammography Report Signed Patient: Tameka RamosMR#: [id number] 6 : 1975Acct:[id number] Age/Sex: 48 / FADM Date: 12/21/23 Loc: HO.MAMMO Attending Dr: Sofia Garcia MD Ordering Physician: Sofia Garcia MDResults: 1N egative Date of Service: 12/21/23Follow Up: 1 Year From Orig inal Mammogram Procedure(s): MM tomosynthesis screening BI Accession Number(s): [id number] cc: Sofia Garcia MD EXAMINATION: MM SCREENING [...] 01/11/24 1146 DD/ 1530 TD/TT: 12/21/23 1553 Sdet: Sofia Garcia MD IMG BI PROCEDURES Final Re sult * Hepatitis C Antibody with Reflex to HCV, RNA, Quantitative, Real-Time PCR (11/24/2023 10:48 AM EDT) Hepatitis C Antibody Nonreactive Nonreactive [facility] Comment:Antibodies to HCV no t detected; does not exclude early acuteHCV infection. Blood Venous blood specimen / Unknown 11/24/2023 10:48 AM EDT 11/24/2023 1:12 PM EDT Sofia Garcia MD LAB BLOOD ORDERABLES Final Result Performing Organization Address City/[facility]/ZIP Co de Phone Number [facility] [address] [place] [address] [phone] * HIV-1/2 Antigen and Antibodies, Fourth Generation, with Reflexes (11/24/2023 10:48 AM EDT) [facility] HIV AB/AG Nonreactive Nonreactive [facility] Comment:HIV-1 p24 Ag and/or HIV-1/HIV-2 Ab not detected.A test result that is nonreactive does not exclude thepossibility of exposure to or infection with HIV-1 and/orHIV-2. Nonreactive results in this assay for individualswith prior exposure to HIV-1 and/or HIV-2 may be due toantigen and antibody levels that are below the limit ofdetection of this assay.The [employer] HIV Ag/Ab Combo assay result andsupplemental assay results should be interpreted inconjunction with the patient's clinical presentation,history and other laboratory results. If the results areinconsistent with clinical evidence, additional testing issuggested to confirm the result. Blood Venous blood specimen / Unknown 11/24/2023 10:48 AM EDT 11/24/2023 1:12 PM EDT Sofia Garcia MD LAB BLOOD ORDERABLES Final Result Performing Organization Address City/[facility]/ZIP Co de Phone Number [facility] [address] [place] [address] [phone] * (ABNORMAL) Lipid Panel, Standard (11/24/2023 10:48 AM EDT) [facility] Triglycerides 94 <150 mg/dL [facility] Comment:Desirable Triglyceri de: less than 150 mg/dLBorderline High Triglyceride 150-199 mg/dLHigh Triglyceride: 200-499 mg/dLVery High Triglyceride: greater than or equal to 5OO mg/dL Cholesterol 186 <200 mg/dL [facility] Comment:Desirable Cholestero l: less than 200 mg/dLBorderline High Cholesterol: 200-239 mg/dLHigh Cholesterol: greater than 239 mg/dL LDL Cholesterol Calculated 123(H) <100 mg/dL [facility] Comment:Desirable LDL: less than 100 mg/dLNear Optimal/Above Optimal LDL: 110- 129 mg/dLBorderline High LDL: 130-159 mg/dLHigh LDL: 160-189 mg/dLVery High LDL: greater than or equal to 190 mg/dL HDL Cholesterol 45 >40 mg/dL [facility] Comment:Desirable HDL: great er than 40 mg/dL Note: This HDL assay may give artificially low results in patients with liver disease. Blood Venous blood specimen / Unknown 11/24/2023 10:48 AM EDT 11/24/2023 1:12 PM EDT us Sofia Garcia MD LAB BLOOD ORDERABLES Final Result [facility] [address] [place] [phone] * HPV E6/E7 RFLX ROGER 16 18/45 (07/02/2020 12:27 PM EDT) HPV mRNA E6/E7 rflx Not Detected Not Detected [facility] Comment: Methodology: Binder [employer] Machine-Mediated Amplification This assay detects E6/E7 viral messenger RNA (mRNA) from 14 high-risk HPV types (16,18,31,33,35,39,45,51,52,56,58,59,66,68). The analytical performance characteristics of this assay have been determined by [employer]. The modifications have not been cleared or approved by the FDA. This assay has been validated pursuant to the CLIA regulations and is used for clinical purposes. For additional information, please refer to http://education.[employer]/faq/YIB454p6 (This link if provided for information/ educational purposes only.) THIS TEST WAS PERFORMED AT: [facility] [address] [place] [address] [address]LO[address],[place] [phone] MAUREEN HENRIQUEZ MD 07/02/2020 12:2 7 PM EDT us Andre Rae MD HISTORICAL/NON ORDERABLE LABS Fi nal Result [facility] [address] * Pap Smear (11/26/2017) Swab 11/26/2017 us Sofia Garcia MD LAB CYTOLOGY ORDERABLES Fi nal Result from Last 3 Months or Most Recently Relevant to Health Maintenance [place] [place] [id number] STANDARD [facility] HMO Advance Directives Documents on File Type Date Recorded Patient Test Evaluator Expl anation Advance Directives and Living Will 11/24/2023 Health Care Proxy 11/24/23 Care Teams Medical Records Assistant Relationship Specialty Start Date End Date [place], MD Sofia [address] [place] [phone] PCP - General Family Medicine 03/28/18 Nhi Monroe [address] [place] [address] 3rd [place] [address] Gastroenterology 07/19/24
--- OUTSIDE RECORDS SUMMARY | 2025-03-14 19:34 | XMS_ITS | Encounter Summary ---
Author Organization [employer] Address [address] [place] [address] 7t [place] [address] Care Team Providers Care Focus Puller Name Role Phone Sofia Garcia MD Primary Care Provider +1- [phone] Nhi Monroe Unavailable Encounter Details Date Type Department Care Team ([facility] Contact Info) Description 07/21/2022 Abstract [facility] [address] [place] [address] [phone] Sofia Garcia MD [address] [place] [address] [phone] Social History Tobacco Use Types Packs/Day Years [...] Department Care Team (Late Contact Info) Description 04/10/2025 10:30 AM EST Office Visit [facility] [address] [place] [address] [phone] Sofia Garcai MD [address] [place] [address] documented as of this encounter Visit Diagnoses Not on filedocumented in this encounter Care Teams Focus Puller Relationship Specialty Start Date End Date Sofia Garcia MD [address] [place] [address] [place] [address] PCP - General Family Medicine 03/28/18 Nhi Monroe [address] [place] [address] 3rd [place] [address] Gastroenterology 07/19/24 documented as of this encounter
== END 2025-03-14 16:49 | disposition home or self-care (01) ==
LOC: HO.HGI 15:57
PROVIDERS: PCP Family Medicine; Visit Provider Nurse Practitioner Family
DX: C7A.8 Other malignant neuroendocrine tumors (principal); K21.9 Gastro-esophageal reflux disease without esophagitis; K59.09 Other constipation
CPT/HCPCS: 99214

== ENCOUNTER 2025-03-18 06:59 | Outpatient (REF) | payer BC, MEDICAID, SELFPAY ==
--- NOTE | ~2025-03-18 | CT_ITS ---
EXAMINATION: CT ABDOMEN PELVIS WITH IV CONTRAST HISTORY: C7A.8 - Other malignant neuroendocrine tumors COMPARISON: Comparison is made with the prior examination dated 06/09/2014. TECHNIQUE: CT scan of the abdomen and pelvis was performed following administration of 85 mL Omnipaque 350 using standard departmental protocol. Coronal and sagittal reformatted images were generated and reviewed. Oral contrast material was not administered at the request of the referring physician. This CT exam was performed with one or more of the following dose reduction techniques: automated exposure control, adjustment of the mA and/or kV according to patient size, use of iterative reconstruction technique. DLP: 425 mGy-cm FINDINGS: LOWER CHEST: The visualized lung bases are clear. There is no pleural effusion. CARDIOVASCULATURE: The heart is normal in size. There is no pericardial effusion. LIVER: The liver is normal in size and contour. No liver mass is identified. The hepatic and portal veins are patent. GALLBLADDER / BILE DUCTS: The gallbladder is unremarkable. There is no intra or extrahepatic biliary ductal dilatation. SPLEEN: The spleen is normal in size. No focal splenic lesion is identified. PANCREAS: The pancreas is unremarkable in appearance. ADRENAL GLANDS: Within normal limits. KIDNEYS/RETROPERITONEUM: No renal calculi are identified. There is no hydronephrosis. No renal masses are identified. LYMPH NODES: No abdominal or pelvic lymphadenopathy. VASCULATURE: The abdominal aorta is normal in caliber. MESENTERY/PERITONEUM: No free fluid. No masses. There is no free intraperitoneal gas. STOMACH: The stomach is collapsed, limiting evaluation. SMALL BOWEL: The small bowel is normal in caliber. COLON: The colon is unremarkable. APPENDIX: Normal. URINARY BLADDER/PELVIC ORGANS: The urinary bladder is collapsed, limiting evaluation. The uterus and ovaries are unremarkable. BONES / SOFT TISSUES: No suspicious bony or soft tissue abnormalities. CT/CT abdomen pelvis w IV con IMPRESSION: Unremarkable contrast-enhanced CT of the abdomen and pelvis. No lymphadenopathy is identified. Electronically signed by: Hans Arteaga MD 03/18/2025 10:13 AM [facility]
--- OUTSIDE RECORDS SUMMARY | 2025-03-18 07:02 | XMS_ITS | Encounter Summary ---
Author Organization [employer] Address [address] [place] [address] 7 [place] [address] Care Team Providers Care Dray Truck Driver Name Role Phone Sofia Garcia MD Primary Care Provider +1- [phone] Nhi Monroe Unavailable Encounter Details Date Type Department Care Team (Latest Contact Info) Description 11/28/2019 Abstract [facility] CONVERSIONS Dental, Provider, DDS Social History [...] Description 04/10/2025 10:30 AM EST Office Visit [facility] [address] [place] [address] Sofia Garcia MD [address] [place] [address] documented as of this encounter Visit Diagnoses Not on filedocumented in this encounter Care Teams Dray Truck Driver Relationship Specialty Start Date End Date Sofia Garcia MD [address] [place] [address] PCP - General Family Medicine 03/28/18 Nhi Monroe [address] [place] [address] [address] [place] [address] Gastroenterology 07/19/24 documented as of this encounter
--- OUTSIDE RECORDS SUMMARY | 2025-03-18 07:02 | XMS_ITS | Encounter Summary ---
Author Organization [employer] Address [address] [place] [address] [address]t [place] [address] Care Team Providers Care Liner Man Name Role Phone Sofia Garcia MD Primary Care Provider +1- [phone] Nhi Monroe Unavailable Encounter Details Date Type Department Care Team ([facility] Contact Info) Description 07/21/2022 Abstract [facility] [address] [place] [address] [phone] Sofia Garcia MD [address] [place] [address] [phone] Social History Tobacco Use Types Packs/Day Years [...] Description 04/10/2025 10:30 AM EST Office Visit [facility] [address] [place] [address] [phone] Sofia Garcia MD [address] [place] [address] documented as of this encounter Visit Diagnoses Not on filedocumented in this encounter Care Teams Liner Man Relationship Specialty Start Date End Date Sofia Garcia MD [address] [place] [address] [place] [address] PCP - General Family Medicine 03/28/18 Nhi Monroe [address] [place] [address] 3rd [place] [address] Gastroenterology 07/19/24 documented as of this encounter
--- OUTSIDE RECORDS SUMMARY | 2025-03-18 07:02 | XMS_ITS | Clinical Summary ---
Author Organization [employer] Address [address] [place] [address] [address] [place] [address] Care Team Providers Care Tailman Name Role Phone Sofia Garcia MD Primary Care Provider [phone] Nhi Monroe Unavailable Allergies No known active [...] Overview (02/20/2024): Lab Results Component Value Date [id number] 27.7 (L) 11/24/2023 -daily vit d started 11/30/23 - Had no received Vitamin D tablets from previous visit. Prescribing cholecalciferol (Vitamin D-3) 25 MCG (1000 UT) tablet 02/20/24 Assessment & Plan (02/20/2024 12:33 PM EST): Lab Results Component Value Date [id number] 27.7 (L) 11/24/2023 -daily vit d started [...] due after 11/22/24 -eye care facilitated by [facility] -dental recommended. -grisel care proxy given and filed 11/23/23 Assessment & Plan (11/24/2023 9:49 AM EDT): -Next Physical due after 11/22/24 -eye care facilitated by [facility] -dental recommended. -grisel care proxy given [...] Mixed bipolar affective disorder, moderate ([facility]) 01/06/2017 Overview (04/25/2024): Not currently on any [...] done. -3 bags a day. 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 Pt [...] Description 02/28/2025 3:00 PM EST Office Visit [facility] [address] [place] [phone] You, Hilda, OD Meibomian gland disease of both eyes, unspecified eyelid (Primary Dx); Retinal hole of left eye; Presbyopia 02/28/2025 Travel 02/25/2025 Refill [facility] [address] [place] [address] Sofia Garcia MD Class 3 severe obesity due to excess calories without serious comorbidity with body mass index (BMI) of 40.0 to 44.9 in adult (HCC) 12/24/2024 Telephone [facility] [address] [place] [address] Sofia Garcia MD February Recalls from Last 3 Months Immunizations Immunization Administration Dates Next Due Hep A, Adult 02/20/2024 Hep B, adult 08/22/2024,02/20/2024,11/24/2023 Influenza, Split (incl. gidla fied surface antigen) 11/25/2011 MMR 12/06/2000 Moderna [...] Description 04/10/2025 10:30 AM EST Office Visit [facility] [address] [place] [address] Sofia Garcia MD [address] [place], [place] [phone] Health Maintenance Due Date Last Done Comments [...] AM EST 02/19/2025 11:11 AM EST [facility] - 02/27/2025 1:42 PM EST ----- ------- Name: Tameka Ramos Age/Sex: 49/F : 1975 Unit#: [id number] Attend Dr: Zuleika Melissa MD Re02/19/25 Status: [facility] Location: [facility] Disch: ----- ------- SPEC : [id number] RECD: 02/19/25 STATUS: LUCILLE ORTEZ NUM: [id number] LUCIO: 02/19/[address] [facility] [address]: Zuleika Melissa MD ENTERED: 02/19/25 SP TYPE: Surgical OTHR DR: Sofia Garcia MD ORDERED: Chromogranin St, HE Stain/9, Gross Micro L4/3, Synaptophysin, IHC/2, Add. immunos, IHC ER/RI/Her2N, Special st. 2/2, H. pylori/2, Ki-67, AB/PAS/2 [...] Tameka Ramos Age/Sex: 49/F : 1975 Unit#: [id number] Attend Dr: Zuleika Melissa MD Re02/19/25 Status: [facility] Location: [facility] Disch: ----- ------- SPEC : [id number] RECD: 02/19/25 STATUS: LUCILLE ORTEZ NUM: [id number] LUCIO: 02/19/25 [facility] [address]: Zuleika Melissa MD ENTERED: 02/19/25 SP TYPE: Surgical OTHR DR: Sofia Garcia MD ORDERED: Chromogranin St, HE Stain/9, Gross Micro L4/3, Synaptophysin, IHC/2, Add. immunos, IHC ER/RI/Her2N, Special st. 2/2, H. pylori/2, Ki-67, AB/PAS/2 [...] microscopic examination, 4 pieces in cassette C. ([facility]) This case was reviewed intradepartmentally; [...] developed and their performance characteristics determined by [facility]. They have not been cleared or approved by the U.S. Food and Drug Administration (FDA). However, the FDA has determined that such clearance or approval is not necessary. This laboratory is CONTINUED ON NEXT PAGE ----- ------- Name: Tameka Ramos Age/Sex: 49/F : 1975 Unit#: [id number] Attend Dr: Zuleika Mleissa MD Re02/19/25 Status: [facility] Location: [facility] Disch: ----- ------- SPEC : [id number] RECD: 02/19/25 STATUS: LUCILLE ORTEZ NUM: [id number] LUCIO: 02/19/[address] [facility] [address]: Zuleika Melissa MD ENTERED: 02/19/25 SP TYPE: Surgical OTHR DR: Sofia Garcia MD ORDERED: Chromogranin St, HE Stain/9, Gross Micro L4/3, Synaptophysin, IHC/2, Add. immunos, IHC ER/RI/Her2N, Special st. 2/2, H. pylori/2, Ki-67, AB/PAS/2 IHC S/NG Disclaimer (Continued) certified under the Clinical Laboratory Improvement Amendments of 1988 (CLIA) as qualified to perform high complexity clinical laboratory testing. Copies To: Sofia Garcia MD [address] [phone] Zuleika Melissa MD [facility] [address] [place] [address] [phone] [email or web address] ----- ------- Signed (signature on file) Joe Lazo MD 02/27/25 1342 ----- ------- END OF REPORT Generic External Data Provider LAB CYTOLOGY ORDE RABLES Final Result Performing Organization Address [facility] Co de Phone Number [facility] [address] [place] [phone] * HCG, Qualitative, Urine (02/19/2025 8:00 AM EST) Urine NEGATIVE NEGATIVE [facility] Comment:This test was develo ped to detect early . Falsenegative results may occur after the 5th - 7th week ofpregnancy when using this test method. If clinicallyindicated, consider a serum hCG. 02/19/2025 8:00 AM EST 02/19/2025 8:04 AM EST Generic External Data Provider LAB URINE ORDERAB LES Final Result Performing Organization Address [facility] Co de Phone Number [facility] [address] [place] [phone] [phone] * Hm Colonoscopy (02/19/2025) Colonoscopy Normal Normal Comment:Normal with Dr. Jaspal Melissa MD Historical Provider HEALTH MAINTENANCE Final Result * BI Mammogram Screening Tomosynthesis Bilateral (12/21/2023 3:30 PM EDT) Anatomical Region Laterality Modality Breast Bilateral Mammography 12/21/2023 3:30 PM EDT Narrative 01/11/2024 11:48 AM EDT [facility] [address] [place] [address] Mammography Report Signed Patient: Tameka Ramos MR#: [id number] 6 : 1975 Acct:[id number] Age/Sex: 48 / F ADM Date: 12/21/23 Loc: HO.MAMMO Attending Dr: Sofia Garcia MD Ordering Physician: Sofia Garcia MD Results: 1N egative Date of Service: 12/21/23 Follow Up: 1 Year From Orig inal Mammogram Procedure(s): MM tomosynthesis screening BI Accession Number(s): [id number] cc: Sofia Garcia MD EXAMINATION: MM SCREENING [...] 01/11/24 1146 DD/ 1530 TD/TT: 12/21/23 1553 Ux Lead: Procedure Note Donotuseinterpreter, Image - 01/11/2024 [facility] [address] [place], [place] [address] Mammography Report Signed Patient: Tameka RamosMR#: [id number] 6 : 1975Acct:[id number] Age/Sex: 48 / FADM Date: 12/21/23 Loc: HO.MAMMO Attending Dr: Sofia Garcia MD Ordering Physician: Sofia Garcia MDResults: 1N egative Date of Service: 12/21/23Follow Up: 1 Year From Orig inal Mammogram Procedure(s): MM tomosynthesis screening BI Accession Number(s): [id number] cc: Sofia Garcia MD EXAMINATION: MM SCREENING [...] 01/11/24 1146 DD/ 1530 TD/TT: 12/21/23 1553 Ux Lead: us Sofia Garcia MD IMG BI PROCEDURES Final Re sult * Hepatitis C Antibody with Reflex to HCV, RNA, Quantitative, Real-Time PCR (11/24/2023 10:48 AM EDT) [facility] Hepatitis C Antibody Nonreactive Nonreactive [facility] Comment:Antibodies to HCV no t detected; does not exclude early acuteHCV infection. Blood Venous blood specimen / Unknown 11/24/2023 10:48 AM EDT 11/24/2023 1:12 PM EDT Sofia Garcia MD LAB BLOOD ORDERABLES Final Result Performing Organization Address City/[facility]/ZIP Co de Phone Number [facility] [address] [place] [phone] * HIV-1/2 Antigen and Antibodies, Fourth Generation, with Reflexes (11/24/2023 10:48 AM EDT) [facility] HIV AB/AG Nonreactive Nonreactive [facility] Comment:HIV-1 p24 Ag and/or HIV-1/HIV-2 Ab not detected.A test result that is nonreactive does not exclude thepossibility of exposure to or infection with HIV-1 and/orHIV-2. Nonreactive results in this assay for individualswith prior exposure to HIV-1 and/or HIV-2 may be due toantigen and antibody levels that are below the limit ofdetection of this assay.The [employer] HIV Ag/Ab Combo assay result andsupplemental assay results should be interpreted inconjunction with the patient's clinical presentation,history and other laboratory results. If the results areinconsistent with clinical evidence, additional testing issuggested to confirm the result. Blood Venous blood specimen / Unknown 11/24/2023 10:48 AM EDT 11/24/2023 1:12 PM EDT Sofia Garcia MD LAB BLOOD ORDERABLES Final Result Performing Organization Address City/[facility]/ZIP Co de Phone Number [facility] [address] [place] [phone] [phone] * (ABNORMAL) Lipid Panel, Standard (11/24/2023 10:48 AM EDT) [facility] Triglycerides 94 <150 mg/dL [facility] Comment:Desirable Triglyceri de: less than 150 mg/dLBorderline High Triglyceride 150-199 mg/dLHigh Triglyceride: 200-499 mg/dLVery High Triglyceride: greater than or equal to 5OO mg/dL Cholesterol 186 <200 mg/dL [facility] Comment:Desirable Cholestero l: less than 200 mg/dLBorderline High Cholesterol: 200-239 mg/dLHigh Cholesterol: greater than 239 mg/dL LDL Cholesterol Calculated 123(H) <100 mg/dL [facility] Comment:Desirable LDL: less than 100 mg/dLNear Optimal/Above Optimal LDL: 110- 129 mg/dLBorderline High LDL: 130-159 mg/dLHigh LDL: 160-189 mg/dLVery High LDL: greater than or equal to 190 mg/dL HDL Cholesterol 45 >40 mg/dL [facility] Comment:Desirable HDL: great er than 40 mg/dL Note: This HDL assay may give artificially low results in patients with liver disease. Blood Venous blood specimen / Unknown 11/24/2023 10:48 AM EDT 11/24/2023 1:12 PM EDT Sofia Garcia MD LAB BLOOD ORDERABLES Final Result [facility] [address] [place] [phone] * HPV E6/E7 RFLX ROGER 16 18/45 (07/02/2020 12:27 PM EDT) HPV mRNA E6/E7 rflx Not Detected Not Detected [facility] Comment: Methodology: Speech Correction Assistant-Mediated Amplification This assay detects E6/E7 viral messenger RNA (mRNA) from 14 high-risk HPV types (16,18,31,33,35,39,45,51,52,56,58,59,66,68). The analytical performance characteristics of this assay have been determined by [employer]. The modifications have not been cleared or approved by the FDA. This assay has been validated pursuant to the CLIA regulations and is used for clinical purposes. For additional information, please refer to http://education.Kanga/faq/CDI372q0 (This link if provided for information/ educational purposes only.) THIS TEST WAS PERFORMED AT: [facility] [address] [place] [address] [address],[place] [address] MAUREEN HENRIQUEZ MD 07/02/2020 12:2 7 PM EDT Andre Rae MD HISTORICAL/NON ORDERABLE LABS Fi nal Result [facility] [address] * Pap Smear (11/26/2017) Swab 11/26/2017 Sofia Garcia MD LAB CYTOLOGY ORDERABLES Fi nal Result from Last 3 Months or Most Recently Relevant to Health Maintenance [place] [address] [place] [address] [employer] [facility] HMO Advance Directives Documents on File Type Date Recorded Patient [employer] Expl anation Advance Directives and Living Will 11/24/2023 Health Care Proxy 11/24/23 Care Teams Tailman Relationship Specialty Start Date End Date Jose, MD Sofia [address] [place] [phone] PCP - General Family Medicine 03/28/18 Nhi Monroe [address] [place] [address] 3[address] [place] [address] Gastroenterology 07/19/24
[2025-03-18] MEDS: iohexoL 350 MG/ML 100 ML INFUS..BTL 85 ML IV (10:03)
[2025-03-18 11:45] LABS: Creatinine POC 1.0 mg/dL (0.5-1.4); GFR POC > 60
== END 2025-03-18 07:00 | disposition home or self-care (01) ==
LOC: HO.CT 06:59
PROVIDERS: PCP Internal Medicine; Visit Provider Nurse Practitioner Family
DX: C7A.8 Other malignant neuroendocrine tumors (principal)
CPT/HCPCS: 74177; 82565; Q9967

== ENCOUNTER → 2025-03-18 07:01 | Outpatient (BNV) | payer BC, MEDICAID, SELFPAY | PROVIDERS: PCP Internal Medicine; Visit Provider Radiology Diagnostic Radiology | DX: C7A.010 Malignant carcinoid tumor of the duodenum (principal) | CPT/HCPCS: 74177 ==